=== PATIENT | female | born 1945 | race Caucasian/White ===

== ENCOUNTER 2024-10-17 14:45 | Inpatient (IN) ==
--- NOTE | 2024-10-17 15:01 | Emergency Department Note ---
Impression & Plan Syncope, Hypoxia, Pneumothorax, Acute UTI (urinary tract infection) ED Provider Note ED Provider Note NAME: KENNY VENEGAS AGE:79 SEX: Female : 1945 ARRIVES VIA: EMS INFORMANT: EMS ED PROVIDER(s): Haritha Nam DO CHIEF COMPLAINT: Syncope, hypoxia HPI: This is an 79-year-old female who presents to the emergency department via EMS after she was in the doctor's office for a follow-up appointment from her recent hospitalization and appeared unwell and had a syncopal event lasting 30 to 45 seconds. Staff reported to EMS that during that time they had a difficult time feeling a pulse, and that her oxygen level was 40% on their pulse ox. No CPR performed according to EMS. They did place her on nasal cannula and turned it up to 15 L/min. EMS states on their arrival patient had begun to arouse however appeared to have agonal respirations. They transitioned her to a nonrebreather, and saturations quickly reached 98%. They states she seemed more alert and route. At bedside patient states she remembers arriving at the doctor's office and speaking with the doctor in the next thing she knew there were EMS personnel around her. She states she does not recall feeling weak, dizzy, having headaches, chest pain, abdominal pain, feeling nauseated, or having any difficulty breathing. Patient states she was recently hospitalized for difficulty breathing but does not use any MDI/nebulizers at home, does not wear home oxygen. Patient states no recent change in her urine. She states she does not have a bowel movement very often and does not know why. She states she cannot recall last time she had a bowel movement. Patient reported to EMS she has not had anything to eat or drink in the last 2 days. PAST MEDICAL HISTORY:See Below PAST SURGICAL HISTORY:See Below FAMILY HISTORY:See Below SOCIAL HISTORY:See Below HOME MEDICATIONS:See Below ALLERGIES:See Below VITALS:See Below PHYSICAL EXAMINATION: GENERAL: alert, unwell appearing, well nourished, no distress, non-toxic EYE EXAM: normal conjunctiva, PERRL and EOM's grossly intact OROPHARYNX: no exudate, no erythema, lips, buccal mucosa, and tongue normal and mucous membranes are moist NECK: supple, no nuchal rigidity, no adenopathy, non-tender LUNGS: Clear to auscultation. Normal chest wall mechanics, no w/r/r HEART: no murmurs, S1 normal and S2 normal ABDOMEN: abdomen soft, non-tender, normo-active bowel sounds, no masses, no rebound or guarding. BACK: Back is symmetrical on inspection and there is no deformity, no midline tenderness, no CVA tenderness. SKIN: no rashes, petechiae, orbruising UPPER EXTREMITIES: upper extremities are grossly normal. FROM, nml pulses b/l. LOWER EXTREMITIES: No pitting edema. FROM, nml pulses b/l. NEURO EXAM: Normal sensorium, cranial nerves II-XII grossly intact, normal speech, no facial droop,nogross weakness of arms, no gross weakness of legs. Gross sensation intact. No ataxia. Vital Signs: reviewed and remarkable Differential Diagnosis: vasovagal event, infection, hypoglycemia, electrolyte abnormalities, toxidrome, substance abuse, dysrhythmia, ACS, as well as others were entertained. MEDICAL DECISION MAKING: This is an 79 yo female who presents via EMS from her PCPs office after an unresponsive and hypoxic episode. Upon arrival she was awake and oriented, and had been weaned off oxygen down to room air. She denied any complaints and EMS reports was resistant initially to coming to the ER. She was afebrile and VS stable. Labs drawn and sent, IV established, EKG and CXR performed and interpreted at bedside, and patient placed on telemetry. Recent admission revealed CHF with LVEF 20%. Patient noted to have pneumothorax on cxr. She was sent for CT head and chest. CT head unremarkable and CT chest with left pneumo and tension component. I discussed with patient and family need for chest tube placement and for admission. After significant discussion and family convincing patient to allow treatment, patient consented. She asked for her son to sign the consent for for the procedure. Please see additional procedure note which patient tolerated well and repeat cxr showed improved pneumo. Patient had been started on IVF due to concern for dehydration as she reported she hadn't had anything to eat/drink for 2 days. She was given IV tylenol and IV fentanyl preprocedure to help with pain. I did discuss the pneumo with oncall pulm prior to placing chest tube and then with hospitalist for further inpatient mgmt. UA noted to be suboptimal and suggestive of possible UTI so patient given IV rocephin additionally. She had no resp distress or hypoxic episodes while in the ER. Consultation(s): 1939: Discussed with Dr. Rosas, pulmonology. 2251: Discussed with Dr. Trinh, [place] hospitalist team, for additional evaluation and mgmt. ER Treatment Provided: See below 1520: Discussed with family now at bedside. They state patient was sitting in a chair and and eye glazed over and her head dropped and they couldn't get her to respond for almost 1 minute, no seizure like activity. Daughter in law states she seemed fine prior to that during the appointment. Diagnostics Interpreted By Me: -ECG: Normal sinus at 81, appropriate axis, right bundle branch block, nonspecific ST/T wave changes -Cardiac Monitoring: An order was placed for continuous cardiac monitoring. The monitor shows a rate of 86 with normal sinus rhythm. -Laboratory studies: As stated above and show below. -Imaging studies: X-ray Chest: A single view study of the chest was reviewed and was negative for cardiomegaly, focal infiltrate, effusion, pulmonary edema, or wide mediastinum. left pneumothorax noted. CT head: no ich Triage Nursing Note Reviewed Prior/Outside Records Reviewed - recent echo from last week reviewed, DC summary reviewed also Procedures: Tube Thoracostomy Indication: Pneumothorax Written consent was obtained after the risks and benefits were explained, including but not limited to cardiac/liver/lung injury, bleeding, scarring, infection, pain, and bone/joint/nerve damage. At this time, the risks of the procedure are less than the risks of NOT performing the procedure. A time out was taken and the correct patient and site identified. The patient was prepped and draped in the standard surgical fashion. 1% lidocaine without epinephrine was infused over the left fourth intercostal space into the subcutaneous tissue. A 1 cm incision was made transversely in the anterior axillary line over the fourth intercostal rib. 1% lidocaine again was used for anesthesia in intercostal muscle and subpleural space. Air was noted upon entering the pleural cavity. A 8 Mexican thoracostomy tube was inserted in the superior/posterior portion of the pleural space. 1-0 silk suture was used to secure the thoracostomy tube. An occlusive dressing was then placed and the thoracostomy tube was hooked to the Pleur-evac suction. The patient tolerated the procedure well without complications. A postoperative x-ray was then performed which showed the thoracostomy tube in the correct position. Critical Care: Critical care of 48 min performed to assess and manage high likelihood of life- threatening hypoxia and syncope, involving labs and imaging performed with assessment to evaluate syncope and hypoxia diagnosis with frequent reassessment. This time includes bedside time, treatment discussions with patient/family/consultants, documentation time and excludes procedure time. 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 Acute respiratory failure with hypoxia CHF (congestive heart failure) (Acute) Medical History (Updated 10/18/24 @ 00:42 by Background Day) Stroke Social History (Updated 10/17/24 @ 13:07 by Yajaira Huang) Smoking Status: Former smoker Tobacco Type: Cigarettes Age Started Using Tobacco: 15; Age Quit Using Tobacco: 15; packs per day: 0.01; Hx Alcohol Use: Yes Alcohol type: beer Hx Substance Use: No Preferred Language: Turkish Communication Ability: Effective Health Care Assistant Required: No Beliefs That Will Affect Care: None Current Living Situation: Alone Current Living Situation Comment: home alone; son lives next door Other Information That Helps Us Care for You: No Feels Safe at Home: Yes Safety Concerns: Feels Safe At This Time Dental Care, Regularly: No Physical Activity Frequency: Does not Exercise Seatbelt Use: always Sunscreen Use: No Assistive Devices: Walker Allergies Allergies Allergy/AdvReac Type Severity Reaction Status Date / Time No Known Allergies Allergy Verified 10/17/24 13:03 Home Meds Home Medications Medication Instructions Recorded Confirmed epinephrine 0.125 mg/actuation 1 puff inhalation DIRECTED PRN 10/08/24 10/17/24 aerosol inhaler (Primatene Mist) Shortness Of Breath Or Wheezing naproxen sodium 220 mg tablet 220 mg PO Q8H PRN Pain 10/08/24 10/17/24 (Aleve) Previous Rx's Medication Instructions Recorded aspirin 81 mg tablet,delayed 81 mg PO DAILY #0 tabs 10/11/24 release sacubitril 24 mg-valsartan 26 mg 1 tab PO BID #60 tabs 10/11/24 tablet (Entresto) furosemide 40 mg tablet (Lasix) 40 mg PO DAILY #30 tabs 10/17/24 potassium chloride 10 mEq 20 meq (2 x 10 mEq) PO BID 30 days 10/17/24 capsule,extended release #120 caps Results & Data (ED) Vital Signs Vital Signs - 24 hr 10/17/24 22:24 10/17/24 23:00 Pulse Rate 71 73 Pulse Rate from SpO2 Sensor 71 74 Respiratory Rate 15 16 Blood Pressure 136/78 156/85 H Blood Pressure Mean 97 108 Pulse Oximetry 99 98 Laboratory Data 10/18/24 04:57 10/18/24 04:57 Lab Results 10/17/24 10/17/24 10/17/24 Range/Units 16:28 16:35 17:37 WBC 7.03 (4.8-10.8) K/ul RBC 5.05 (4.20-5.40) M/uL Hgb 14.8 (12.0-16.0) g/dl Hct 43.9 (37.0-47.0) % MCV 86.9 (80.0-100.0) fL MCH 29.3 (25.0-34.0) pg MCHC 33.7 (32.0-36.0) g/dL RDW Std Deviation 42.6 (36.4-46.3) fL RDW Coeff of Ericka 13.4 (11.5-14.5) % Plt Count 132 (130-400) K/uL MPV 13.2 H (9.4-12.4) fL Immature Gran % (Auto) 0.3 % Neut % (Auto) 79.3 % Lymph % (Auto) 11.5 % [place] % (Auto) 6.4 % Eos % (Auto) 1.6 % Baso % (Auto) 0.9 % Neut # (Auto) 5.58 (1.40-6.50) K/uL Lymph # (Auto) 0.81 L (1.20-3.40) K/uL [place] # (Auto) 0.45 (0.11-0.59) K/uL Eos # (Auto) 0.11 (0.00-0.50) K/uL Baso # (Auto) 0.06 (0.00-0.20) K/uL Immature Gran # (Auto) 0.02 (0.01-0.20) K/uL PT 10.8 (9.0-12.0) Seconds INR 1.0 (0.9-1.1) VBG pH 7.30 L (7.36-7.41) VBG pCO2 62 H (38-50) mmHg VBG pO2 20 mmHg VBG HCO3 31 mmol/L VBG O2 Saturation < 60.0 % VBG Base Excess 2.4 mEq/L Sodium 137 (136-145) mmol/L Potassium 4.1 (3.5-5.1) mmol/L Chloride 99 (98-107) mmol/L Carbon Dioxide 28 (21-32) mmol/L Anion Gap 10 (3-11) BUN 23 (6-23) mg/dl Creatinine 1.05 (0.6-1.2) mg/dl Est Cr Clr Drug Dosing 31.0 ml/min eGFR 53.71 BUN/Creatinine Ratio 21.9 H (10-20) Glucose 109 H (70-99(Fasting)) mg/dl Lactate 2.4 H* (0.4-2.0) mmol/L Calcium TNP Magnesium 2.3 (1.7-2.4) mg/dl Total Bilirubin 0.8 (0.2-1.0) mg/dl AST 11 L (13-39) U/L ALT 8 (7-52) U/L Alkaline Phosphatase 74 (34-104) U/L Troponin I High Sens Cancelled Total Protein 7.1 (6.0-8.3) gm/dl Albumin 3.7 (3.4-5.0) gm/dl Globulin 3.4 (2.5-4.0) gm/dl Albumin/Globulin Ratio 1.1 (0.9-2) Lipase 28 (11-82) U/L Procalcitonin 0.04 (0-0.5) ng/ml TSH Cancelled Free T4 1.06 (0.61-1.60) ng/dl Urine Color Yellow Urine Appearance Clear (Clear) Urine pH 6.0 (4.5-7.5) Ur Specific [place] 1.009 (1.000-1.030) Urine Protein Negative (Negative) Urine Glucose (UA) Negative (Negative) Urine Ketones Negative (Negative) Urine Blood Trace H (Negative) Urine Nitrite Negative (Negative) Urine Bilirubin Negative (Negative) Urine Urobilinogen Negative (Negative) Ur Leukocyte Esterase 3+ H (Negative) Urine WBC (Auto) >50 H (0-5) /hpf Urine RBC (Auto) 0-2 (0-2) /hpf U Hyaline Cast (Auto) 6-10 H (0-2) /lpf U Epithel Cells (Auto) 3-5 H (0-2) /hpf Urine Bacteria (Auto) 1+ H (None Seen) Urine Comment 10/17/24 Range/Units 18:29 WBC (4.8-10.8) K/ul RBC (4.20-5.40) M/uL Hgb (12.0-16.0) g/dl Hct (37.0-47.0) % MCV (80.0-100.0) fL MCH (25.0-34.0) pg MCHC (32.0-36.0) g/dL RDW Std Deviation (36.4-46.3) fL RDW Coeff of Ericka (11.5-14.5) % Plt Count (130-400) K/uL MPV (9.4-12.4) fL Immature Gran % (Auto) % Neut % (Auto) % Lymph % (Auto) % [place] % (Auto) % Eos % (Auto) % Baso % (Auto) % Neut # (Auto) (1.40-6.50) K/uL Lymph # (Auto) (1.20-3.40) K/uL [place] # (Auto) (0.11-0.59) K/uL Eos # (Auto) (0.00-0.50) K/uL Baso # (Auto) (0.00-0.20) K/uL Immature Gran # (Auto) (0.01-0.20) K/uL PT (9.0-12.0) Seconds INR (0.9-1.1) VBG pH (7.36-7.41) VBG pCO2 (38-50) mmHg VBG pO2 mmHg VBG HCO3 mmol/L VBG O2 Saturation % VBG Base Excess mEq/L Sodium (136-145) mmol/L Potassium (3.5-5.1) mmol/L Chloride (98-107) mmol/L Carbon Dioxide (21-32) mmol/L Anion Gap (3-11) BUN (6-23) mg/dl Creatinine (0.6-1.2) mg/dl Est Cr Clr Drug Dosing ml/min eGFR BUN/Creatinine Ratio (10-20) Glucose (70-99(Fasting)) mg/dl Lactate 2.6 H* (0.4-2.0) mmol/L Calcium 8.9 Magnesium (1.7-2.4) mg/dl Total Bilirubin (0.2-1.0) mg/dl AST (13-39) U/L ALT (7-52) U/L Alkaline Phosphatase (34-104) U/L Troponin I High Sens 14.2 H Total Protein (6.0-8.3) gm/dl Albumin (3.4-5.0) gm/dl Globulin (2.5-4.0) gm/dl Albumin/Globulin Ratio (0.9-2) Lipase (11-82) U/L Procalcitonin (0-0.5) ng/ml TSH 4.954 H Free T4 Cancelled (0.61-1.60) ng/dl Urine Color Urine Appearance (Clear) Urine pH (4.5-7.5) Ur Specific [place] (1.000-1.030) Urine Protein (Negative) Urine Glucose (UA) (Negative) Urine Ketones (Negative) Urine Blood (Negative) Urine Nitrite (Negative) Urine Bilirubin (Negative) Urine Urobilinogen (Negative) Ur Leukocyte Esterase (Negative) Urine WBC (Auto) (0-5) /hpf Urine RBC (Auto) (0-2) /hpf U Hyaline Cast (Auto) (0-2) /lpf U Epithel Cells (Auto) (0-2) /hpf Urine Bacteria (Auto) (None Seen) Urine Comment Administered Medications Mirtazapine (Mirtazapine Tab 15 Mg Tab) 15 mg PO HS BULMARO Stop: 11/17/24 20:59 Last Admin: 10/18/24 19:29 Dose: 15 mg Documented By: CP Discontinued Medications Fentanyl Citrate (Fentanyl Citrate Pf 100 Mcg/2 Ml Vial) 25 mcg IV Q15M PRN PRN Reason: Pain Stop: 10/31/24 21:11 Last Admin: 10/17/24 21:57 Dose: 25 mcg Documented By: ERM Sodium Chloride (Nss) 1,000 mls @ 200 mls/hr IV .Q5H BULMARO Stop: 10/20/24 14:59 Last Admin: 10/18/24 01:08 Dose: Not Given Documented By: Infusion: 10/17/24 20:40 Dose: Infused Documented By: Admin: 10/17/24 15:33 Dose: 200 mls/hr Documented By: KMF Ceftriaxone Sodium (Rocephin) 2,000 mg in 50 mls @ 100 mls/hr IV NOW STA Stop: 10/17/24 19:53 Last Infusion: 10/17/24 20:18 Dose: Infused Documented By: Admin: 10/17/24 19:45 Dose: 100 mls/hr Documented By: ROYAL Lactated Ringer's (Lr) 1,000 mls @ 80 mls/hr IV .[id number] BULMARO Stop: 10/18/24 20:14 Last Infusion: 10/18/24 19:23 Dose: Infused Documented By: Admin: 10/18/24 07:59 Dose: 80 mls/hr Documented By: GPF Albumin Human (Albumin 25%) 25 gm in 100 mls @ 50 mls/hr IV Q2H BULMARO Stop: 10/18/24 11:44 Last Infusion: 10/18/24 11:43 Dose: Infused Documented By: Admin: 10/18/24 09:45 Dose: 50 mls/hr Documented By: Infusion: 10/18/24 09:45 Dose: Infused Documented By: Admin: 10/18/24 07:59 Dose: 50 mls/hr Documented By: GPF Cefepime HCl (Maxipime 2000mg) 2,000 mg in 20 mls @ 5 mls/min IV Q12H BULMARO; Protocol Stop: 10/23/24 08:59 Last Admin: 10/18/24 11:06 Dose: Not Given Documented By: GPF Ioversol (Optiray 320 100ml) 92 ml IV ONCE ONE Stop: 10/17/24 17:56 Last Admin: 10/17/24 17:56 Dose: 92 ml Documented By: CRISTAL Levalbuterol HCl (Levalbuterol Hcl 0.63 Mg/3 Ml Neb) 0.63 mg NEB Q6R BULMARO; Protocol Stop: 11/17/24 08:59 Last Admin: 10/18/24 19:23 Dose: Not Given Documented By: Admin: 10/18/24 09:25 Dose: Not Given Documented By: EALexx Lidocaine HCl (Lidocaine 1% Local 20 Ml Vial) 20 ml INFIL NOW ONE Stop: 10/17/24 21:13 Last Admin: 10/17/24 23:15 Dose: Not Given Documented By: ERM Morphine Sulfate (Morphine Sulfate 2 Mg/Ml Carp) 1 mg IV NOW STA Stop: 10/18/24 08:49 Last Admin: 10/18/24 09:11 Dose: 1 mg Documented By: GPF Sacubitril/Valsartan (Valsartan/Sacubitril 26/24mg Tab) 1 tab PO BID BULMARO Stop: 11/17/24 00:51 Last Admin: 10/18/24 01:24 Dose: 1 tab Documented By: CLC Imaging Data Radiologist's Impression: Chest X-Ray 10/17/24 14:56 XR chest 1V portable CLINICAL HISTORY: syncope, hypoxia COMPARISON STUDY: 10/10/2024 FINDINGS: There is a small left pneumothorax with 1.5 cm pleural separation at the left apex. No pneumothorax seen on the right. There is stable cardiomegaly without pulmonary vascular congestion. There is a possible trace right pleural effusion. No pulmonary consolidation seen. IMPRESSION: Interval small left pneumothorax. ACT 112: Negative or not required by law. Electronically signed by: Jayson Damon M.D. 10/17/2024 4:[address] 10/17/24 16:07 EXAMINATION: Chest CT with CLINICAL HISTORY: Hypoxia, new left pneumothorax PRIORS: 10/10/2024 chest radiograph TECHNIQUE: Contiguous axial images were obtained through the chest with the use of intravenous contrast. Sagittal and coronal reformations are supplied. FINDINGS: A moderate right pneumothorax is present, appearing since the chest radiograph. Allowing for rotation, the heart and trachea shifted to the right hemithorax. 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 Diffuse aneurysmal dilatation of the aorta is present. Allowing for nongated technique, the ascending aorta measures 3.4 x 3.5 cm at the level of the main pulmonary artery. The descending aorta measures approximately 3.0 x 3.3 cm at this level. The mid descending thoracic aorta measures 3.5 x 3.3 cm. The distal thoracic aorta is tortuous. Mural thrombus present within the aorta wall,. The distal thoracic aorta measures 3.1 x 3.4 cm, also with advanced atherosclerotic disease. Moderate bilateral pleural effusions present, improved in the interval. Heart size is extremely enlarged with dilatation of the left ventricle and left atrium, no further characterized. No large pericardial effusion. Calcified hilar and mediastinal lymph nodes represent prior granulomatous exposure. Trachea patent. No airspace consolidation to suggest pneumonia. Moderate to advanced osseous demineralization noted. Moderate kyphosis and degenerative change of the thoracic spine. No displaced fracture identified IMPRESSION: 1. Known left pneumothorax, moderate in size, with tension on the mediastinum, shifting the heart and trachea to the right. The critical results protocol was activated at 6:56 PM on 10/17/2024. 2. Moderate bilateral pleural effusions. 3. 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 The integrity of the aortic wall is not fully evaluated on the current examination. Vascular surgery consultation could be considered if clinically appropriate. ACT 112: Positive. There are findings on this examination that require communication between the performing entity and the patient following Patient Test Result Information Act ([place] ACT 112) guidelines. Electronically signed by Kendal Freitas 10-17-2024 6:[address] 10/17/24 16:07 Clinical History: Hypoxia Technique: Axial computed tomography images were obtained of the brain without intravenous contrast. Findings: There is diffuse cerebral atrophy, within expected limits for the patient's age. Areas of decreased attenuation are seen within the periventricular white matter, likely representing chronic small vessel ischemic disease. There is no definite sign of acute or old infarction. No intracranial hemorrhage is evident. No definite mass lesion is seen on this noncontrast examination. There is no midline shift or other form of herniation. No hydrocephalus is seen. No fracture is identified. The orbits and the visualized paranasal sinuses appear unremarkable. The mastoid air cells appear clear. Impression: 1. Cerebral atrophy and chronic small vessel ischemic disease 2. Otherwise unremarkable noncontrast CT of the brain Electronically signed by Denny Bianchi 10-17-2024 6:10 PM Chest X-Ray 10/17/24 21:46 Exam(s): XR CXR 1 VIEW EXAM: XR Chest, 1 View CLINICAL HISTORY: Reason for exam: post chest tube. TECHNIQUE: Frontal view of the chest. COMPARISON: Earlier the same date. FINDINGS: Lungs: No consolidation. Pleural space: There is a left chest tube. No pneumothorax. There is blunting of the right costophrenic angle. Heart: Heart is top normal in size.. Mediastinum: There is uncoiling of thoracic aorta.. Bones/joints: There are degenerative changes in the spine.. IMPRESSION: There is a left chest tube. No pneumothorax is seen. There is a possible small right pleural effusion. Electronically signed by: Tamir Cordero MD 10/17/24 22:56 PM Discharge Plan Visit Data Chief Complaint: Syncope Stated Complaint: SYNCOPE ED Provider: Haritha Nam Discharge Problem: Syncope, Hypoxia, Pneumothorax, Acute UTI (urinary tract infection) Patient Disposition: Admitted As Inpatient Condition: Fair Discharge Instructions Interventions: ED Discharge Assessment Last Done: 10/18/24 00:15
[2024-10-17] MEDS: SODIUM CHLORIDE 0.9% 1,000 ML IV SCH (15:33)
--- NOTE | 2024-10-17 16:01 | XRay Report ---
XR chest 1V portable CLINICAL HISTORY: syncope, hypoxia COMPARISON STUDY: 10/10/2024 FINDINGS: There is a small left pneumothorax with 1.5 cm pleural separation at the left apex. No pneu mothorax seen on the right. There is stable cardiomegaly without pulmonary vascular congestion. There is a possible trace right pleural effusion. No pulmonary consolidation seen. IMPRESSION: Interval small left pneumothorax. ACT 112: Negative or not required by law. Electronically signed by: Jayson Damon M.D. 10/17/2024 4:00 PM
[2024-10-17 16:54] LABS: Base Excess VBG 2.4 mEq/L; HCO3 VBG 31 mmol/L; Oxygen Saturation VBG < 60.0 %; PCO2 VBG 62 mmHg (38-50); PO2 VBG 20 mmHg; pH VBG 7.30 (7.36-7.41)
[2024-10-17 17:27] LABS: INR 1.0 (0.9-1.1); Prothrombin Time 10.8 Seconds (9.0-12.0)
[2024-10-17 17:31] LABS: Anion Gap 10 (3-11); Bilirubin,Total 0.8 mg/dl (0.2-1.0); Carbon Dioxide 28 mmol/L (21-32); Chloride 99 mmol/L (98-107); Magnesium 2.3 mg/dl (1.7-2.4); Potassium 4.1 mmol/L (3.5-5.1); Sodium 137 mmol/L (136-145)
[2024-10-17 17:35] LABS: Hematocrit (blood only) 43.9 % (37.0-47.0); Hemoglobin 14.8 g/dl (12.0-16.0); Immature Granulocytes # (auto) 0.02 K/uL (0.01-0.20); Immature Granulocytes % (auto) 0.3 %; Mean Corpuscular Hemoglobin 29.3 pg (25.0-34.0); Mean Corpuscular Volume 86.9 fL (80.0-100.0); Platelet Count 132 K/uL (130-400); RDW Standard Deviation 42.6 fL (36.4-46.3); Red Blood Count 5.05 M/uL (4.20-5.40); White Blood Count 7.03 K/ul (4.8-10.8)
[2024-10-17 17:37] LABS: Alanine Aminotransferase 8 U/L (7-52); Albumin Globulin Ratio 1.1 (0.9-2); Alkaline Phosphatase 74 U/L (34-104); Blood Urea Nitrogen 23 mg/dl (6-23); Creatinine Clr Calc Pharmacy 31.0 ml/min; Globulin 3.4 gm/dl (2.5-4.0); Glucose 109 mg/dl (70-99(Fasting)); Lipase 28 U/L (11-82); Total Protein 7.1 gm/dl (6.0-8.3)
[2024-10-17] MEDS: OPTIRAY 320 100ml IV ONE (17:56)
--- NOTE | 2024-10-17 18:11 | CT Scan Report ---
Clinical History: Hypoxia Technique: Axial computed tomography images were obtained of the brain without intravenous contrast. Findings: There is diffuse cerebral atrophy, within expected limits for the patient's age. Areas of decreased attenuation are seen within the periventricular white matter, likely representing chronic small vessel ischemic disease. There is no definite sign of acute or old infarction. No intracranial hemorrhage is evident. No definite mass lesion is seen on this noncontrast examination. There is no midline shift or other form of herniation. No hydrocephalus is seen. No fracture is identified. The orbits and the visualized paranasal sinuses appear unremarkable. The mastoid air cells appear clear. Impression: 1. Cerebral atrophy and chronic small vessel ischemic disease 2. Otherwise unremarkable noncontrast CT of the brain Electronically signed by Denny Bianchi 10-17-2024 6:10 PM
--- NOTE | 2024-10-17 18:58 | CT Scan Report ---
EXAMINATION: Chest CT with CLINICAL HISTORY: Hypoxia, new left pneumothorax PRIORS: 10/10/2024 chest radiograph TECHNIQUE: Contiguous axial images were obtained through the chest with the use of intravenous contrast. Sagittal and coronal reformations are supplied. FINDINGS: A moderate right pneumothorax is present, appearing since the chest radiograph. Allowing for rotation, the heart and trachea shifted to the right hemithorax. 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 Diffuse aneurysmal dilatation of the aorta is present. Allowing for nongated technique, the ascending aorta measures 3.4 x 3.5 cm at the level of the main pulmonary artery. The descending aorta measures approximately 3.0 x 3.3 cm at this level. The mid descending thoracic aorta measures 3.5 x 3.3 cm. The distal thoracic aorta is tortuous. Mural thrombus present within the aorta wall,. The distal thoracic aorta measures 3.1 x 3.4 cm, also with advanced atherosclerotic disease. Moderate bilateral pleural effusions present, improved in the interval. Heart size is extremely enlarged with dilatation of the left ventricle and left atrium, no further characterized. No large pericardial effusion. Calcified hilar and mediastinal lymph nodes represent prior granulomatous exposure. Trachea patent. No airspace consolidation to suggest pneumonia. Moderate to advanced osseous demineralization noted. Moderate kyphosis and degenerative change of the thoracic spine. No displaced fracture identified IMPRESSION: 1. Known left pneumothorax, moderate in size, with tension on the mediastinum, shifting the heart and trachea to the right. The critical results protocol was activated at 6:56 PM on 10/17/2024. 2. Moderate bilateral pleural effusions. 3. 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 The integrity of the aortic wall is not fully evaluated on the current examination. Vascular surgery consultation could be considered if clinically appropriate. ACT 112: Positive. There are findings on this examination that require communication between the performing entity and the patient following Patient Test Result Information Act ([place] ACT 112) guidelines. Electronically signed by Kendal Freitas 10-17-2024 6:57 PM
[2024-10-17 19:22] LABS: Appearance Urine Clear (Clear); Bacteria Urine Automated 1+ (None Seen); Glucose Urine UA Negative (Negative); RBC Urine Automated 0-2 /hpf (0-2); WBC Urine Automated >50 /hpf (0-5)
[2024-10-17 19:23] LABS: Calcium 8.9 mg/dl (8.6-10.3)
[2024-10-17 19:44] LABS: Thyroid Stimulating Hormone 4.954 uIu/ml (0.300-4.500)
[2024-10-17] MEDS: cefTRIAXone SODIUM 2,000 MG/50 ML BAG IV STA (19:45)
--- NOTE | 2024-10-17 22:56 | XRay Report ---
Exam(s): XR CXR 1 VIEW EXAM: XR Chest, 1 View CLINICAL HISTORY: Reason for exam: post chest tube. TECHNIQUE: Frontal view of the chest. COMPARISON: Earlier the same date. FINDINGS: Lungs: No consolidation. Pleural space: There is a left chest tube. No pneumothorax. There is blunting of the right costophrenic angle. Heart: Heart is top normal in size.. Mediastinum: There is uncoiling of thoracic aorta.. Bones/joints: There are degenerative changes in the spine.. IMPRESSION: There is a left chest tube. No pneumothorax is seen. There is a possible small right pleural effusion. Electronically signed by: Tamir Cordero MD 10/17/24 22:56 PM
[2024-10-17] MEDS: LIDOCAINE 1% LOCAL 20 ML VIAL INFIL ONE (23:15)
--- NOTE | 2024-10-17 23:54 | History & Physical Report ---
Date of Service October 17, 2024 Assessment & Plan (1) Syncope: (2) Pneumothorax: (3) Acute respiratory failure with hypoxia: (4) Acute UTI (urinary tract infection): Plan the patient is an 79-year-old female with a past medical history including left anterior hemiblock, CHF, acute on chronic respiratory failure, and hypertension. The patient was taken to the emergency department via EMS after she was in her PCPs office today, and began to feel unwell, and her PCP thought that she was having an acute respiratory failure event lasting about 30 to 45 seconds. Her oxygen level was reportedly 40% on EMS pulse ox machine. No CPR was performed. She did get placed on nasal cannula and was turned up to 15 L/min. EMS reports that the patient initially had agonal respirations. They changed her from 15 L nasal cannula to nonrebreather mask, and saturations went to 98%. Patient improved alertness as she was transported to the ED. At the time of my assessment, patient was on nasal cannula, and able to converse clearly and efficiently. Syncope- Patient was at her doctor's office earlier in the day, when he noted her developing decreasing responsiveness, noted to be acute respiratory failure with hypoxia, and she then had an unresponsive episode lasted 30 to 45 seconds. The patient will be admitted to telemetry for serial cardiac enzymes, serial EKG's, cardiac rhythm monitoring and a 2-D echocardiogram with Dopplers. Differential including not limited to, vasovagal, complication of left pneumothorax and displacement urgent treatment with right, urinary tract infection here sort soreness Left tension pneumothorax/displaced heart and trachea to the right- ED discussed with pulmonology Dr. Rosas. Chest tube placed left chest, with improved patient's symptomatology. Patient will be admitted to PCU overflow in the ICU, with consult to pulmonology. Initial troponin 14.2, follow-up pending Acetaminophen 650 mg by mouth every 6 hours as needed for mild pain or fever Morphine sulfate 2 mg IV every 3 hours as needed for moderate pain Morphine sulfate 4 mg IV every 3 hours as needed for severe pain Acute urinary tract infection- Follow urine culture and sensitivity Continue ceftriaxone 2 g IV every 24 hours begun in the ED Complete IV fluids normal saline at 200 mL/h in the ED, then lactated Ringer's at 80 mL/h times 1 L Hypertension- Continue aspirin, Hold furosemide and Entresto due to low blood pressure Give albumin 50 g IV x 1 for albumin 3.1. History of Present Illness Chief Complaint: The patient was taken to the emergency department via EMS after she was in her PCPs office today, and began to feel unwell, and her PCP thought that she was having an acute respiratory failure event lasting about 30 to 45 seconds. Her oxygen level was reportedly 40% on EMS pulse ox machine. No CPR was performed. She did get placed on nasal cannula and was turned up to 15 L/min. EMS reports that the patient initially had agonal respirations. They changed her from 15 L nasal cannula to nonrebreather mask, and saturations went to 98%. Patient improved alertness as she was transported to the ED. At the time of my assessment, patient was on nasal cannula, and able to converse clearly and efficiently. Primary Care Provider: Prasad Estevez DO the patient is an 79-year-old female with a past medical history including left anterior hemiblock, CHF, acute on chronic respiratory failure, and hypertension. The patient was taken to the emergency department via EMS after she was in her PCPs office today, and began to feel unwell, and her PCP thought that she was having an acute respiratory failure event lasting about 30 to 45 seconds. Her oxygen level was reportedly 40% on EMS pulse ox machine. No CPR was performed. She did get placed on nasal cannula and was turned up to 15 L/min. EMS reports that the patient initially had agonal respirations. They changed her from 15 L nasal cannula to nonrebreather mask, and saturations went to 98%. Patient improved alertness as she was transported to the ED. At the time of my assessment, patient was on nasal cannula, and able to converse clearly and efficiently. Allergies Allergy/AdvReac Type Severity Reaction Status Date / Time No Known Allergies Allergy Verified 10/17/24 13:03 Home Medications Medication Instructions Recorded Confirmed Type epinephrine 0.125 mg/actuation 1 puff inhalation DIRECTED PRN 10/08/24 10/17/24 History aerosol inhaler (Primatene Mist) Shortness Of Breath Or Wheezing naproxen sodium 220 mg tablet 220 mg PO Q8H PRN Pain 10/08/24 10/17/24 History (Aleve) aspirin 81 mg tablet,delayed 81 mg PO DAILY #0 tabs 10/11/24 10/17/24 Rx release sacubitril 24 mg-valsartan 26 mg 1 tab PO BID #60 tabs 10/11/24 10/17/24 Rx tablet (Entresto) furosemide 40 mg tablet (Lasix) 40 mg PO DAILY #30 tabs 10/17/24 10/17/24 Rx potassium chloride 10 mEq 20 meq (2 x 10 mEq) PO BID 30 days 10/17/24 10/17/24 Rx capsule,extended release #120 caps Past Med/Surg History Problem List (Updated 10/18/24 @ 00:42 by Background Dajanae) Acute UTI (urinary tract infection) (Acute) Pneumothorax (Acute) Hypoxia (Acute) Syncope (Acute) Pressure ulcer, buttock Pressure ulcer of right ankle Acute respiratory failure Hypoxia Encounter for hospice care discussion Patient cannot afford medications Does not have health insurance Hypokalemia 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 Acute respiratory failure with hypoxia CHF (congestive heart failure) (Acute) Medical History (Updated 10/18/24 @ 00:42 by Background Dajanae) Stroke Social History (Updated 10/17/24 @ 13:07 by Yajaira Huang) Smoking Status: Former smoker Tobacco Type: Cigarettes Age Started Using Tobacco: 15; Age Quit Using Tobacco: 15; packs per day: 0.01; Hx Alcohol Use: Yes Alcohol type: beer Hx Substance Use: No Preferred Language: Indonesian Communication Ability: Effective Title Supervisor Required: No Beliefs That Will Affect Care: None Current Living Situation: Alone Current Living Situation Comment: home alone; son lives next door Other Information That Helps Us Care for You: No Feels Safe at Home: Yes Safety Concerns: Feels Safe At This Time Dental Care, Regularly: No Physical Activity Frequency: Does not Exercise Seatbelt Use: always Sunscreen Use: No Assistive Devices: Walker Review of Systems Review of Systems: The patient denies chest pain, palpitations, cough, lower extremity swelling, sore throat, fevers, chills, sweats, nausea, vomiting, diarrhea , constipation, abdominal pain, pelvic pain, blood in urine or stool, dysuria, urinary frequency or urgency, lightheadedness, dizziness, headache, rash, abnormal bruising or bleeding, imbalance, focal or generalized weakness, numbness or tingling in arms or legs, generalized arthralgias or myalgias, back or neck pain, or night sweats. The review of systems is otherwise negative other than for that already noted above, and at least 10 systems have been reviewed. Physical Exam Physical Exam: The patient is awake, alert and oriented 3, well developed and well nourished, normocephalic and atraumatic, lying in bed and in no acute distress. HEENT--PERRL, EOMI, mucous membranes and oropharynx dry. Neck--supple. No JVD. No bruits. Thyroid normal, trachea midline, no adenopathy. Heart--normal S1 and S2. No murmurs, rubs or gallops. Lungs--clear bilaterally, no respiratory distress, no accessory muscle use. Abdomen--normal bowel sounds and soft. Nontender. Nondistended, no hernias or ma sses, no organomegaly. Extremities--no cyanosis or clubbing. No edema. . Dermatologic--normal skin turgor, normal color, no abnormal lymph nodes, no rash. Neurologic--cranial nerves II through XII grossly intact. Rheumatologic--normal range of motion. Psychiatric--normal affect. Results & Data Results & Data Vital Signs (Past 12 Hours) Vital Signs Temp Pulse Resp BP Pulse Ox O2 Del Method 10/17/24 23:00 73 16 156/85 H 98 10/17/24 22:24 71 15 136/78 99 10/17/24 20:21 85 17 140/66 100 10/17/24 18:57 86 18 120/65 95 10/17/24 17:03 73 18 134/83 98 Room Air 10/17/24 16:27 68 17 98 10/17/24 16:03 72 18 137/78 98 Room Air 10/17/24 15:48 71 13 137/72 97 Room Air 10/17/24 15:29 72 10/17/24 15:03 96 Room Air 10/17/24 15:03 36.8 C 75 20 156/81 H 96 Room Air Laboratory Results Laboratory Results WBC 5.72 K/ul (4.8-10.8) 10/18/24 04:57 RBC 4.57 M/uL (4.20-5.40) 10/18/24 04:57 Hgb 12.7 g/dl (12.0-16.0) 10/18/24 04:57 Hct 39.1 % (37.0-47.0) 10/18/24 04:57 MCV 85.6 fL (80.0-100.0) 10/18/24 04:57 MCH 27.8 pg (25.0-34.0) 10/18/24 04:57 MCHC 32.5 g/dL (32.0-36.0) 10/18/24 04:57 RDW Std Deviation 42.8 fL (36.4-46.3) 10/18/24 04:57 RDW Coeff of Ericka 13.6 % (11.5-14.5) 10/18/24 04:57 Plt Count 156 K/uL (130-400) 10/18/24 04:57 MPV 12.4 fL (9.4-12.4) 10/18/24 04:57 Immature Gran % (Auto) 0.3 % 10/18/24 04:57 Neut % (Auto) 71.1 % 10/18/24 04:57 Lymph % (Auto) 15.7 % 10/18/24 04:57 [place] % (Auto) 9.3 % 10/18/24 04:57 Eos % (Auto) 2.6 % 10/18/24 04:57 Baso % (Auto) 1.0 % 10/18/24 04:57 Neut # (Auto) 4.06 K/uL (1.40-6.50) 10/18/24 04:57 Lymph # (Auto) 0.90 K/uL (1.20-3.40) L 10/18/24 04:57 [place] # (Auto) 0.53 K/uL (0.11-0.59) 10/18/24 04:57 Eos # (Auto) 0.15 K/uL (0.00-0.50) 10/18/24 04:57 Baso # (Auto) 0.06 K/uL (0.00-0.20) 10/18/24 04:57 Immature Gran # (Auto) 0.02 K/uL (0.01-0.20) 10/18/24 04:57 PT 10.8 Seconds (9.0-12.0) 10/17/24 16:28 INR 1.0 (0.9-1.1) 10/17/24 16:28 VBG pH 7.30 (7.36-7.41) L 10/17/24 16:28 VBG pCO2 62 mmHg (38-50) H 10/17/24 16:28 VBG pO2 20 mmHg 10/17/24 16:28 VBG HCO3 31 mmol/L 10/17/24 16:28 VBG O2 Saturation < 60.0 % 10/17/24 16:28 VBG Base Excess 2.4 mEq/L 10/17/24 16:28 Sodium 138 mmol/L (136-145) 10/18/24 04:57 Potassium 3.9 mmol/L (3.5-5.1) 10/18/24 04:57 Chloride 102 mmol/L (98-107) 10/18/24 04:57 Carbon Dioxide 26 mmol/L (21-32) 10/18/24 04:57 Anion Gap 10 (3-11) 10/18/24 04:57 BUN 22 mg/dl (6-23) 10/18/24 04:57 Creatinine 1.00 mg/dl (0.6-1.2) 10/18/24 04:57 Est Cr Clr Drug Dosing 32.4 ml/min 10/18/24 04:57 eGFR 56.95 10/18/24 04:57 BUN/Creatinine Ratio 22.0 (10-20) H 10/18/24 04:57 Glucose 101 mg/dl (70-99(Fasting)) H 10/18/24 04:57 Lactate 2.6 mmol/L (0.4-2.0) H* 10/17/24 18:29 Calcium 8.7 mg/dl (8.6-10.3) 10/18/24 04:57 Phosphorus 3.9 mg/dl (2.5-4.9) 10/18/24 04:57 Magnesium 2.2 mg/dl (1.7-2.4) 10/18/24 04:57 Total Bilirubin 0.8 mg/dl (0.2-1.0) 10/17/24 16:28 AST 11 U/L (13-39) L 10/17/24 16:28 ALT 8 U/L (7-52) 10/17/24 16:28 Alkaline Phosphatase 74 U/L (34-104) 10/17/24 16:28 Troponin I High Sens 14.2 pg/ml (0-14) H 10/17/24 18:29 Total Protein 7.1 gm/dl (6.0-8.3) 10/17/24 16:28 Albumin 3.1 gm/dl (3.4-5.0) L 10/18/24 04:57 Globulin 3.4 gm/dl (2.5-4.0) 10/17/24 16:28 Albumin/Globulin Ratio 1.1 (0.9-2) 10/17/24 16:28 Lipase 28 U/L (11-82) 10/17/24 16:28 Procalcitonin 0.04 ng/ml (0-0.5) 10/17/24 16:28 TSH 4.954 uIu/ml (0.300-4.500) H 10/17/24 18:29 Free T4 TNP 10/17/24 18:29 Urine Color Yellow 10/17/24 17:37 Urine Appearance Clear (Clear) 10/17/24 17:37 Urine pH 6.0 (4.5-7.5) 10/17/24 17:37 Ur Specific [place] 1.009 (1.000-1.030) 10/17/24 17:37 Urine Protein Negative (Negative) 10/17/24 17:37 Urine Glucose (UA) Negative (Negative) 10/17/24 17:37 Urine Ketones Negative (Negative) 10/17/24 17:37 Urine Blood Trace (Negative) H 10/17/24 17:37 Urine Nitrite Negative (Negative) 10/17/24 17:37 Urine Bilirubin Negative (Negative) 10/17/24 17:37 Urine Urobilinogen Negative (Negative) 10/17/24 17:37 Ur Leukocyte Esterase 3+ (Negative) H 10/17/24 17:37 Urine WBC (Auto) >50 /hpf (0-5) H 10/17/24 17:37 Urine RBC (Auto) 0-2 /hpf (0-2) 10/17/24 17:37 U Hyaline Cast (Auto) 6-10 /lpf (0-2) H 10/17/24 17:37 U Epithel Cells (Auto) 3-5 /hpf (0-2) H 10/17/24 17:37 Urine Bacteria (Auto) 1+ (None Seen) H 10/17/24 17:37 Urine Comment 10/17/24 17:37 Nasal Screen MRSA (PCR) Negative (Negative) 10/18/24 01:[address] 10/17/24 16:07 EXAMINATION: Chest CT with CLINICAL HISTORY: Hypoxia, new left pneumothorax PRIORS: 10/10/2024 chest radiograph TECHNIQUE: Contiguous axial images were obtained through the chest with the use of intravenous contrast. Sagittal and coronal reformations are supplied. FINDINGS: A moderate right pneumothorax is present, appearing since the chest radiograph. Allowing for rotation, the heart and trachea shifted to the right hemithorax. 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 Diffuse aneurysmal dilatation of the aorta is present. Allowing for nongated technique, the ascending aorta measures 3.4 x 3.5 cm at the level of the main pulmonary artery. The descending aorta measures approximately 3.0 x 3.3 cm at this level. The mid descending thoracic aorta measures 3.5 x 3.3 cm. The distal thoracic aorta is tortuous. Mural thrombus present within the aorta wall,. The distal thoracic aorta measures 3.1 x 3.4 cm, also with advanced atherosclerotic disease. Moderate bilateral pleural effusions present, improved in the interval. Heart size is extremely enlarged with dilatation of the left ventricle and left atrium, no further characterized. No large pericardial effusion. Calcified hilar and mediastinal lymph nodes represent prior granulomatous exposure. Trachea patent. No airspace consolidation to suggest pneumonia. Moderate to advanced osseous demineralization noted. Moderate kyphosis and degenerative change of the thoracic spine. No displaced fracture identified IMPRESSION: 1. Known left pneumothorax, moderate in size, with tension on the mediastinum, shifting the heart and trachea to the right. The critical results protocol was activated at 6:56 PM on 10/17/2024. 2. Moderate bilateral pleural effusions. 3. 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 The integrity of the aortic wall is not fully evaluated on the current examination. Vascular surgery consultation could be considered if clinically appropriate. ACT 112: Positive. There are findings on this examination that require communication between the performing entity and the patient following Patient Test Result Information Act ([place] ACT 112) guidelines. Electronically signed by Kendal Freitas 10-17-2024 6:[address] 10/17/24 16:07 Clinical History: Hypoxia Technique: Axial computed tomography images were obtained of the brain without intravenous contrast. Findings: There is diffuse cerebral atrophy, within expected limits for the patient's age. Areas of decreased attenuation are seen within the periventricular white matter, likely representing chronic small vessel ischemic disease. There is no definite sign of acute or old infarction. No intracranial hemorrhage is evident. No definite mass lesion is seen on this noncontrast examination. There is no midline shift or other form of herniation. No hydrocephalus is seen. No fracture is identified. The orbits and the visualized paranasal sinuses appear unremarkable. The mastoid air cells appear clear. Impression: 1. Cerebral atrophy and chronic small vessel ischemic disease 2. Otherwise unremarkable noncontrast CT of the brain Electronically signed by Denny Bianchi 10-17-2024 6:10 PM Code Status & VTE Plan Code Status Full code VTE Prophylaxis Plan VTE Prophylaxis will be ordered: Yes PG Care Time/CCT Total # of Minutes Spent Total Time Spent with Patient: Total time spent is greater than 50% in coordination of care (as documented) at patient's floor/unit and/or counseling patient: Coding Level of Care Code 56606 INT INP/OBS CARE 3/75MIN Diagnoses Syncope R55 Pneumothorax J93.9 Acute respiratory failure with hypoxia J96.01 Acute UTI (urinary tract infection) N39.0
[2024-10-18] MEDS ORDERED: ACETAMINOPHEN 1000 MG/100 ML IV IV PRN (00:52)
[2024-10-18] MEDS ORDERED: ONDANSETRON INJ 2 MG/ML 2 ML VIAL IV PRN (00:52)
[2024-10-18] MEDS ORDERED: MoRPHine SULFATE 2 MG/ML CARP IV PRN (00:52)
[2024-10-18] MEDS ORDERED: MoRPHine SULFATE 4 MG/ML 1 ML CARP\\VIAL IV PRN (00:52)
[2024-10-18] MEDS: VALSARTAN/SACUBITRIL 26/24MG TAB PO SCH (01:24)
[2024-10-18 05:17] LABS: Hematocrit (blood only) 39.1 % (37.0-47.0); Hemoglobin 12.7 g/dl (12.0-16.0); Immature Granulocytes # (auto) 0.02 K/uL (0.01-0.20); Immature Granulocytes % (auto) 0.3 %; Mean Corpuscular Hemoglobin 27.8 pg (25.0-34.0); Mean Corpuscular Volume 85.6 fL (80.0-100.0); Platelet Count 156 K/uL (130-400); RDW Standard Deviation 42.8 fL (36.4-46.3); Red Blood Count 4.57 M/uL (4.20-5.40); White Blood Count 5.72 K/ul (4.8-10.8)
[2024-10-18 05:32] LABS: Anion Gap 10.0 (3-11); Blood Urea Nitrogen 22.0 mg/dl (6-23); Calcium 8.7 mg/dl (8.6-10.3); Carbon Dioxide 26.0 mmol/L (21-32); Chloride 102.0 mmol/L (98-107); Creatinine Clr Calc Pharmacy 32.4 ml/min; Glucose 101.0 mg/dl (70-99(Fasting)); Magnesium 2.2 mg/dl (1.7-2.4); Potassium 3.9 mmol/L (3.5-5.1); Sodium 138.0 mmol/L (136-145)
[2024-10-18] MEDS: ALBUMIN 25% 25 GM/100 ML VIAL IV SCH (07:59)
[2024-10-18] MEDS: LACTATED RINGER'S 1,000 ML IV SCH (07:59)
--- NOTE | 2024-10-18 08:10 | XRay Report ---
EXAM: XR chest 1V portable CLINICAL HISTORY: evaluate for pneumothorax TECHNIQUE: An X-ray image of the chest was obtained in the AP projection. COMPARISON: CT study dated 10/17/2024. FINDINGS: There is a left-sided chest tube with the tip projecting over the mid lung zone. Pulmonary Parenchyma: There is significant interval resolution of the left pneumothorax, and a minimal pneumothorax is still present. There is no evidence of consolidation, collapse, or focal opacities. No pulmonary nodules are identified. There is blunting of the right costophrenic angle, likely due to mild pleural effusion. Heart and Mediastinum: Cardiomegaly is present, with a prominent tortuous aorta. There are small calcified lymph nodes in the mediastinum. Bony Thorax: The bony thorax appears intact without fractures or deformities. There are degenerative changes in the bilateral glenohumeral and acromioclavicular joints. Spondylotic changes are noted in the thoracic spine. Soft Tissues: The soft tissues overlying the chest wall are unremarkable. IMPRESSION: 1. Left-sided chest tube with the tip projecting over the mid lung zone, which is a new finding. 2. Marked improvement in the left pneumothorax, with apical minimal pneumothorax still seen. 3. Blunting of the right costophrenic angle, likely due to mild pleural effusion, unchanged. Electronically signed by Morgan Estevez 10-18-2024 08:10 AM
[2024-10-18] MEDS: MoRPHine SULFATE 2 MG/ML CARP IV STA (09:11)
[2024-10-18] MEDS: LEVALBUTEROL HCL 0.63 MG/3 ML NEB NEB SCH (09:25)
--- NOTE | 2024-10-18 09:37 | Hospitalist Progress Note ---
Date of Service October 18, 2024 Assessment & Plan (1) Syncope: (2) Pneumothorax: (3) Acute respiratory failure with hypoxia: (4) Acute UTI (urinary tract infection): Plan Sangeeta Islas is an 79-year-old female with a PMH including left anterior hemiblock, CHF, acute on chronic respiratory failure, and hypertension. she was recently in the hospital for CHF exacerbation, pulmonary edema, hypoxic, hypokalemia her EF was found to be 20% on echo on 10/17/2024, shes was at PCP office and has hypoxia, desatuarate to 40%. The patient brought to our ED via EMS from PCP office. , and began to feel unwell, and her PCP thought that she was having an acute respiratory failure event lasting about 30 to 45 seconds. oxygen level was reportedly 40% on EMS pulse ox machine. No CPR was performed. placed on 15 liter oxygen but EMS reports that the patient initially had agonal respirations. They changed her from 15 L nasal cannula to nonrebreather mask, and saturations went to 98%. Patient improved alertness as she was transported here. found to has tension pneumothorax and displaced heart and trachea to the right, s/p chest tube to the left heart no bed in PCU and overflow to ICU. Syncope- Patient was at her doctor's office on 10/17, when he noted her developing decreasing responsiveness, noted to be acute respiratory failure with hypoxia, and she then had an unresponsive episode lasted 30 to 45 seconds. telemetry, serial cardiac enzymes, serial EKG's, cardiac rhythm monitoring and a 2-D echocardiogram with Dopplers. duplex US to r/o DVT Differential including not limited to, vasovagal, complication of left p neumothorax and displacement urgent treatment with right, urinary tract infection here sort soreness Left tension pneumothorax/displaced heart and trachea to the right- ED discussed with pulmonology Dr. Rosas. Chest tube placed left chest, with improved patient's symptomatology. Initial troponin 14.2, follow-up pending no chest pain Acetaminophen 650 mg by mouth every 6 hours as needed for mild pain or fever Morphine sulfate 2 mg IV every 3 hours as needed for moderate pain Morphine sulfate 4 mg IV every 3 hours as needed for severe pain Acute urinary tract infection- Follow urine culture and sensitivity Continue ceftriaxone 2 g IV every 24 hours begun in the ED Complete IV fluids normal saline at 200 mL/h in the ED, then lactated Ringer's at 80 mL/h times 1 L Hypertension- Continue aspirin, Hold furosemide and Entresto due to low blood pressure Give albumin 50 g IV x 1 for albumin 3.1. Admission and Anticipated Discharge Date Admission Date: October 17, 2024 Subjective she was here for syncope episode, was recently in the hospital she's has chest tube for pneumothorax I will coverage her with IV cefepime until Physical Exam Physical Exam: VITALS: Reviewed. WEIGHT/BMI reviewed. GEN: Healthy appearing, well-developed, NAD. PSYCH: Good Judgment. AOx3. Normal memory, mood, and affect. HEENT -Head: NC/AT; -Mouth and throat: MMM. Normal gums, muc rasahd, palate,. Good dentition. NECK: Supple, with no masses. CV: RRR, no m/r/g. LUNGS: CTAB, no w/r/c; + for left side chest tube . ABD: Soft, NT/ND, NBS, no masses or organomegaly. MSK: No deformities, Normal gait. EXT: No clubbing, cyanosis, or edema. NEURO: AAox3 Results & Data Results & Data Vital Signs (Past 12 Hours) Vital Signs Temp Pulse Pulse Resp BP BP Pulse Ox 10/18/24 03:57 36.7 C 67 18 108/57 L 97 10/18/24 02:00 36.7 C 67 16 121/66 96 10/18/24 00:45 64 10/18/24 00:45 36.7 C 72 16 97 10/18/24 00:15 69 19 123/73 99 10/17/24 23:00 73 16 156/85 H 98 10/17/24 22:24 71 15 136/78 99 O2 Del Method 10/18/24 03:57 Room Air 10/18/24 02:00 Room Air 10/18/24 00:45 10/18/24 00:45 Room Air 10/18/24 00:15 Room Air 10/17/24 23:00 10/17/24 22:24 Laboratory Results Laboratory Results - last 72 hr 10/17/24 10/17/24 10/17/24 16:28 16:35 17:37 WBC 7.03 RBC 5.05 Hgb 14.8 Hct 43.9 MCV 86.9 MCH 29.3 MCHC 33.7 RDW Std Deviation 42.6 RDW Coeff of Ericka 13.4 Plt Count 132 MPV 13.2 H Immature Gran % (Auto) 0.3 Neut % (Auto) 79.3 Lymph % (Auto) 11.5 [place] % (Auto) 6.4 Eos % (Auto) 1.6 Baso % (Auto) 0.9 Neut # (Auto) 5.58 Lymph # (Auto) 0.81 L [place] # (Auto) 0.45 Eos # (Auto) 0.11 Baso # (Auto) 0.06 Immature Gran # (Auto) 0.02 PT 10.8 INR 1.0 VBG pH 7.30 L VBG pCO2 62 H VBG pO2 20 VBG HCO3 31 VBG O2 Saturation < 60.0 VBG Base Excess 2.4 Sodium 137 Potassium 4.1 Chloride 99 Carbon Dioxide 28 Anion Gap 10 BUN 23 Creatinine 1.05 Est Cr Clr Drug Dosing 31.0 eGFR 53.71 BUN/Creatinine Ratio 21.9 H Glucose 109 H Lactate 2.4 H* Calcium TNP Phosphorus Magnesium 2.3 Total Bilirubin 0.8 AST 11 L ALT 8 Alkaline Phosphatase 74 Troponin I High Sens Cancelled Total Protein 7.1 Albumin 3.7 Globulin 3.4 Albumin/Globulin Ratio 1.1 Lipase 28 Procalcitonin 0.04 TSH Cancelled Free T4 1.06 Urine Color Yellow Urine Appearance Clear Urine pH 6.0 Ur Specific [place] 1.009 Urine Protein Negative Urine Glucose (UA) Negative Urine Ketones Negative Urine Blood Trace H Urine Nitrite Negative Urine Bilirubin Negative Urine Urobilinogen Negative Ur Leukocyte Esterase 3+ H Urine WBC (Auto) >50 H Urine RBC (Auto) 0-2 U Hyaline Cast (Auto) 6-10 H U Epithel Cells (Auto) 3-5 H Urine Bacteria (Auto) 1+ H Urine Comment Nasal Screen MRSA (PCR) 10/17/24 10/18/24 10/18/24 18:29 01:00 04:57 WBC 5.72 RBC 4.57 Hgb 12.7 Hct 39.1 MCV 85.6 MCH 27.8 MCHC 32.5 RDW Std Deviation 42.8 RDW Coeff of Ericka 13.6 Plt Count 156 MPV 12.4 Immature Gran % (Auto) 0.3 Neut % (Auto) 71.1 Lymph % (Auto) 15.7 [place] % (Auto) 9.3 Eos % (Auto) 2.6 Baso % (Auto) 1.0 Neut # (Auto) 4.06 Lymph # (Auto) 0.90 L [place] # (Auto) 0.53 Eos # (Auto) 0.15 Baso # (Auto) 0.06 Immature Gran # (Auto) 0.02 PT INR VBG pH VBG pCO2 VBG pO2 VBG HCO3 VBG O2 Saturation VBG Base Excess Sodium 138 Potassium 3.9 Chloride 102 Carbon Dioxide 26 Anion Gap 10 BUN 22 Creatinine 1.00 Est Cr Clr Drug Dosing 32.4 eGFR 56.95 BUN/Creatinine Ratio 22.0 H Glucose 101 H Lactate 2.6 H* Calcium 8.9 8.7 Phosphorus 3.9 Magnesium 2.2 Total Bilirubin AST ALT Alkaline Phosphatase Troponin I High Sens 14.2 H Total Protein Albumin 3.1 L Globulin Albumin/Globulin Ratio Lipase Procalcitonin TSH 4.954 H Free T4 Cancelled Urine Color Urine Appearance Urine pH Ur Specific [place] Urine Protein Urine Glucose (UA) Urine Ketones Urine Blood Urine Nitrite Urine Bilirubin Urine Urobilinogen Ur Leukocyte Esterase Urine WBC (Auto) Urine RBC (Auto) U Hyaline Cast (Auto) U Epithel Cells (Auto) Urine Bacteria (Auto) Urine Comment Nasal Screen MRSA (PCR) Negative 10/18/24 07:52 WBC RBC Hgb Hct MCV MCH MCHC RDW Std Deviation RDW Coeff of Ericka Plt Count MPV Immature Gran % (Auto) Neut % (Auto) Lymph % (Auto) [place] % (Auto) Eos % (Auto) Baso % (Auto) Neut # (Auto) Lymph # (Auto) [place] # (Auto) Eos # (Auto) Baso # (Auto) Immature Gran # (Auto) PT INR VBG pH VBG pCO2 VBG pO2 VBG HCO3 VBG O2 Saturation VBG Base Excess Sodium Potassium Chloride Carbon Dioxide Anion Gap BUN Creatinine Est Cr Clr Drug Dosing eGFR BUN/Creatinine Ratio Glucose Lactate Calcium Phosphorus Magnesium Total Bilirubin AST ALT Alkaline Phosphatase Troponin I High Sens 14.8 H Total Protein Albumin Globulin Albumin/Globulin Ratio Lipase Procalcitonin TSH Free T4 Urine Color Urine Appearance Urine pH Ur Specific [place] Urine Protein Urine Glucose (UA) Urine Ketones Urine Blood Urine Nitrite Urine Bilirubin Urine Urobilinogen Ur Leukocyte Esterase Urine WBC (Auto) Urine RBC (Auto) U Hyaline Cast (Auto) U Epithel Cells (Auto) Urine Bacteria (Auto) Urine Comment Nasal Screen MRSA (PCR) PG Care Time/CCT Total # of Minutes Spent Total Time Spent with Patient: Total time spent is greater than 50% in coordination of care (as documented) at patient's floor/unit and/or counseling patient: Coding Level of Care Code 28440 SUB INP/OBS CARE 25MIN Diagnoses Syncope R55 Pneumothorax J93.9 Acute respiratory failure with hypoxia J96.01 Acute UTI (urinary tract infection) N39.0 Time Spent (min) 25
--- NOTE | 2024-10-18 09:52 | Pulmonary Consultation ---
Date of Consultation October 18, 2024 Assessment & Plan (1) Pneumothorax: Patient with spontaneous left-sided pneumothorax. CT chest without clear evidence of blebs or emphysema. I reviewed the chest x-rays today which shows a trace apical pneumothorax. Chest tube was clamped. Will repeat a chest x-ray a t 11 AM and if no evidence of pneumothorax, we will DC the catheter. She will benefit from an additional chest x-ray if she develops other symptoms. (2) Syncope: Probably multifactorial related to pneumothorax and underlying cardiac disease. 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 Plan Pulmonary will continue to follow along with you. Thank you for the consult. I personally spent 60 minutes on the date of service in activities related to this patient's encounter, including 40 minutes of counseling with patient regarding treatment plan and 20 minutes of clinical review of lab results and documentation. I did assistant corporation counsel the patient regarding their diagnosis and treatment plan and they expressed understanding. This note was dictated using voice recognition software and may include grammatical errors, extra words, word substitutions and other inaccuracies due to errors in the voice recognition software and differences in speech patterns. History of Present Illness Reason for Consultation: Left-sided pneumothorax Attending Physician: Jasmin Chew DO History of Present Illness 79-year-old female who presented to the hospital to the ER due to a syncopal episode at her primary care office. She was brought to the ER and underwent chest x-ray which revealed a moderate size left pneumothorax. She then had a CT chest which confirmed the findings. On arrival she had evidence of hypoxemia was placed on a 15 L nonrebreather with improvement of her saturations. A small bore chest tube was placed in the left hemithorax by the ED physician with significant improvement of the pneumothorax. Chest x-ray today revealed near complete resolution. Chest tube was clamped. She is doing well at this time and denies any shortness of breath or chest pain. She is lying in bed. She notes brief tobacco abuse when she was in high school. 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 She has no significant secondhand tobacco exposures and no significant history of pulmonary disease that she is aware of. She denies any history of asthma or COPD. Allergies Allergy/AdvReac Type Severity Reaction Status Date / Time No Known Allergies Allergy Verified 10/17/24 13:03 Home Medications Medication Instructions Recorded Confirmed Type epinephrine 0.125 mg/actuation 1 puff inhalation DIRECTED PRN 10/08/24 10/17/24 History aerosol inhaler (Primatene Mist) Shortness Of Breath Or Wheezing naproxen sodium 220 mg tablet 220 mg PO Q8H PRN Pain 10/08/24 10/17/24 History (Aleve) aspirin 81 mg tablet,delayed 81 mg PO DAILY #0 tabs 10/11/24 10/17/24 Rx release sacubitril 24 mg-valsartan 26 mg 1 tab PO BID #60 tabs 10/11/24 10/17/24 Rx tablet (Entresto) furosemide 40 mg tablet (Lasix) 40 mg PO DAILY #30 tabs 10/17/24 10/17/24 Rx potassium chloride 10 mEq 20 meq (2 x 10 mEq) PO BID 30 days 10/17/24 10/17/24 Rx capsule,extended release #120 caps Patient History Medical History (Updated 10/18/24 @ 00:42 by Jasmyn Bernstein) Stroke Social History (Updated 10/17/24 @ 13:07 by Yajaira Huang) Smoking Status: Former smoker Tobacco Type: Cigarettes Age Started Using Tobacco: 15; Age Quit Using Tobacco: 15; packs per day: 0.01; Hx Alcohol Use: Yes Alcohol type: beer Hx Substance Use: No Preferred Language: Citizen Of [place] Communication Ability: Effective 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 Patient is in no apparent distress. Patient is well-developed. Eyes: Pupils are equal round and reactive to light. Conjunctivae are normal. Anicteric sclera. Ears nose, mouth and throat: Mallampati class 2. Normal posterior oropharynx. Uvula is midline. Neck: Trachea is midline. Visual inspection is normal. Respiratory: Clear to auscultation bilaterally. No use of accessory muscles. No significant clubbing noted. Left small bore chest tube in place and sutured. Cardiovascular: Regular rate and rhythm. No murmurs. No edema. Gastrointestinal: Normal bowel sounds, soft, nontender and nondistended. No hepatosplenomegaly noted. Musculoskeletal: No cyanosis. Patient is able to move all extremities. Streng th is 5 out of 5 in the upper and lower extremities. Skin: No rashes, warm dry and intact. Neurologic: No obvious focal neurological deficits seen. Psychiatric: Alert and oriented x3 with a euthymic affect. Results & Data Results & Data Vital Signs (Past 12 Hours) Vital Signs Temp Pulse Pulse Resp BP BP Pulse Ox 10/18/24 09:15 73 19 98 10/18/24 08:49 102/48 L 10/18/24 08:48 67 23 98 10/18/24 08:00 72 15 98 10/18/24 08:00 10/18/24 08:00 10/18/24 08:00 10/18/24 08:00 64 10/18/24 07:00 76 16 97 10/18/24 07:00 37.0 C 10/18/24 03:57 36.7 C 67 18 108/57 L 97 10/18/24 02:00 36.7 C 67 16 121/66 96 10/18/24 00:45 64 10/18/24 00:45 36.7 C 72 16 97 10/18/24 00:15 69 19 123/73 99 10/17/24 23:00 73 16 156/85 H 98 10/17/24 22:24 71 15 136/78 99 O2 Del Method O2 Del Method 10/18/24 09:15 10/18/24 08:49 10/18/24 08:48 10/18/24 08:00 10/18/24 08:00 Room Air 10/18/24 08:00 Room Air 10/18/24 08:00 Room Air 10/18/24 08:00 10/18/24 07:00 10/18/24 07:00 10/18/24 03:57 Room Air 10/18/24 02:00 Room Air 10/18/24 00:45 10/18/24 00:45 Room Air 10/18/24 00:15 Room Air 10/17/24 23:00 10/17/24 22:24 PG Care Time/CCT Total # of Minutes Spent Total Time Spent with Patient: Total time spent is greater than 50% in coordination of care (as documented) at patient's floor/unit and/or counseling patient: Coding Level of Care Code 91702 INT INP/OBS CARE 2/55MIN Diagnoses Pneumothorax J93.9 Syncope R55
--- NOTE | 2024-10-18 10:56 | XRay Report ---
XR chest 1V portable CLINICAL HISTORY: evaluate PTX after chest tube clamped COMPARISON STUDY: 10/18/2024 and 10/17/2024 FINDINGS: Stable small bore left chest tube. Stable trace left apical pneumothorax. No consolidation or pleural effusion seen. IMPRESSION: Stable trace left pneumothorax. ACT 112: Negative or not required by law. Electronically signed by: Jayson Damon M.D. 10/18/2024 10:55 AM
[2024-10-18] MEDS: CEFEPIME 2000MG 2,000 MG/20 ML SYR IV SCH (11:06)
--- NOTE | 2024-10-18 12:20 | Electrocardiogram Report ---
Test Reason : Blood Pressure : */* mmHG Vent. Rate : 73 BPM Atrial Rate : 73 BPM P-R Int : 168 ms QRS Dur : 126 ms QT Int : 440 ms P-R-T Axes : 73 -78 80 degrees QTcB Int : 484 ms Normal sinus rhythm with sinus arrhythmia Right bundle branch block Left anterior fascicular block Bifascicular block Abnormal ECG When compared with ECG of 17-Oct-2024 14:50, No significant change was found Confirmed by Julio César Perez ([id number]) on 10/18/2024 12:20:21 PM Referred By: Prasad Estevez Confirmed By: Julio César Perez
--- NOTE | 2024-10-18 13:29 | Procedure Note ---
Procedure Note Date of Service October 18, 2024 Chest tube removal: Verbal consent obtained from the patient prior to procedure. Timeout performed. Dressing was taken down. Sutures were removed. Chest tube was removed upon exhalation. Chest tube was revealed to be intact upon removal. Occlusive dressing placed over the chest tube. Patient tolerated removal well. Pulmonary services will sign off at this time. Please call questions. [facility] [place]odes (Charges) Pulmonary/Thoracic Procedure 1: Pulmonary and Thoracic: 81013 Remove lung catheter Coding CPT Codes Pulmonary/Thoracic - Pulmonary and Thoracic: 17186 Remove lung catheter ([id number]) Additional Codes Date of Service ([email or web address])
[2024-10-18] MEDS ORDERED: LEVALBUTEROL HCL 0.63 MG/3 ML NEB NEB PRN (13:35)
[2024-10-18] MEDS: MIRTAZAPINE TAB 15 MG TAB PO SCH (19:29)
[2024-10-18] MEDS ORDERED: cefTRIAXone SODIUM 2,000 MG/50 ML BAG IV SCH (20:00)
[2024-10-19 02:14] VITALS: TEMP 98.2
[2024-10-19 04:44] LABS: Hematocrit (blood only) 35.7 % (37.0-47.0); Hemoglobin 11.6 g/dl (12.0-16.0); Immature Granulocytes # (auto) 0.01 K/uL (0.01-0.20); Immature Granulocytes % (auto) 0.2 %; Mean Corpuscular Hemoglobin 28.0 pg (25.0-34.0); Mean Corpuscular Volume 86.2 fL (80.0-100.0); Platelet Count 131 K/uL (130-400); RDW Standard Deviation 42.3 fL (36.4-46.3); Red Blood Count 4.14 M/uL (4.20-5.40); White Blood Count 4.51 K/ul (4.8-10.8)
[2024-10-19 05:02] LABS: Alanine Aminotransferase 4.0 U/L (7-52); Albumin Globulin Ratio 1.5 (0.9-2); Alkaline Phosphatase 45.0 U/L (34-104); Anion Gap 6.0 (3-11); Bilirubin,Total 0.6 mg/dl (0.2-1.0); Blood Urea Nitrogen 22.0 mg/dl (6-23); Calcium 8.7 mg/dl (8.6-10.3); Carbon Dioxide 27.0 mmol/L (21-32); Chloride 106.0 mmol/L (98-107); Creatinine Clr Calc Pharmacy 36.0 ml/min; Globulin 2.3 gm/dl (2.5-4.0); Glucose 88.0 mg/dl (70-99(Fasting)); Magnesium 2.2 mg/dl (1.7-2.4); Potassium 3.8 mmol/L (3.5-5.1); Sodium 139.0 mmol/L (136-145); Total Protein 5.7 gm/dl (6.0-8.3)
[2024-10-19 08:34] VITALS: O2SAT 98
[2024-10-19] MEDS: THIAMINE HCL 200 MG in SODIUM CHLORIDE 0.9% 50 ML IV SCH (09:29)
[2024-10-19 10:31] VITALS: BP 137/71; PULSE 71; RESP 22
--- NOTE | 2024-10-19 12:04 | Palliative Care Consultation ---
Date of Consultation October 19, 2024 Assessment & Plan (1) SOB (shortness of breath) on exertion: Pt recently admitted for similar complaints, and states that her breathing is "normal now" and does not appear to be dyspneic on RA at rest. No signs of conversational dyspnea. Pt to be discharged to home with [facility] and son requests oxygen at home for symptom management as she does get SOB with exertion. (2) Encounter for hospice care discussion: Spoke with pt's son via phone from 09:40 - 10:25, we discussed pt's values and goals of care. Sukhjinder expressed that the pt has avoided medical interventions of any kind for most of her life. He shared concern that she has undiagnosed dementia and has good days and bad days as for as her cognitive abilities. He shared that she lives in a trailer on his property and he is available to assist with all ADLs and iADLs as needed. He shared concern that she is getting sicker and worries that she does not want to follow up with necessary chronic disease management after discharge. Sukhjinder shared that he has spoken with the pt's PCP a nd was told that Hospice would be appropriate given pt's wish to avoid future hospitalizations. He shared that he will be meeting with inbound customer service representative from [facility] at hospital later this morning. Discussed hospice benefit: an interdisciplinary program offered by nurses, nurses aides, social workers, chaplains and a medical office administrator for patients with a terminal condition and a life expectancy of less than 6 months. This is covered by Medicare at 100%/no out of pocket expense to patient and all meds/supplies needed by patient for the reason they are on hospice are paid for/covered by hospice. The goal is assure quality of life of the patient in their home setting (home, [facility], inpatient hospice setting) by providing symptoms management, psychosocial and spiritual support. However, they cannot offer 24 hours care and if the family is unable to provide that care, they will have to consider personal care with out of pocket cost vs. [facility] placemen t. We discussed the goals of hospice as a patient service and the goals of care; we discussed EOL trajectories and transitions sabiha the emotional impact of realizing mortality as a concrete reality from prior abstract considerations. Pt was reassured that no matter where they are along this trajectory, they are not alone - their medical team will remain by their side through their journey. Discussed the pros/cons of accepting help when especially weakened and distressed by pain-which would also help provide relief/decrease caregiver burden/strain. Sukhjinder expressed that he has been told by family that if they adopt hospice care, the patient would not be able to come back to the hospital even if she got sicker. We discussed that with comfort directed care, emergent symptoms are managed at home as best possible and if pt comfort cannot be achieved at home or if pt requires higher level of care than can be offered at home, hospice team would arrange for transport of patient to a facility where she can get the appropriate level of care. We discussed that transfer to a hospital or SNF would be for the purpose of ongoing comfort directed/hospice care rather than life prolonging treatments. We briefly discussed code status and that given the goal of comfort directed care is to ensure comfort while allowing for a peaceful, natural code status would be DNR/DNI. (3) Counseling regarding goals of care: as above (4) Comfort measures only status: Sukhjinder requests DNR/DNI/[employer] status and discharge to home with hospice care. He shared that the only DME required at this time will be oxygen. Plan [employer], pending discharge home with hospice History of Present Illness Reason for Consultation: goals of care Requesting Physician: Jasmin Chew DO Attending Physician: Jasmin Chew DO History of Present Illness Ms Islas is a 79y female with a past medical history including left anterior hemiblock, CHF, acute on chronic respiratory failure, and hypertension. The patient was sent to ED from her PCPs office today, due to an acute episode of respiratory distress lasting about 30 to 45 seconds. Her oxygen level was reportedly 40% on EMS pulse ox machine. she was placed on 15 L nasal cannula, then nonrebreather mask, and saturations went to 98%. Patient improved alertness as she was transported to the ED. In Ed CT revealed Left tension pneumothorax/displaced heart and trachea to the right requiring left chest tube placement, with improvement in patient's symptomatology. She was admitted to telemetry for serial cardiac enzymes, serial EKG's, cardiac rhythm monitoring and a 2-D echocardiogram with Dopplers. Allergies Allergy/AdvReac Type Severity Reaction Status Date / Time No Known Allergies Allergy Verified 10/17/24 13:03 Home Medications Medication Instructions Recorded Confirmed Type epinephrine 0.125 mg/actuation 1 puff inhalation DIRECTED PRN 10/08/24 10/17/24 History aerosol inhaler (Primatene Mist) Shortness Of Breath Or Wheezing naproxen sodium 220 mg tablet 220 mg PO Q8H PRN Pain 10/08/24 10/17/24 History (Aleve) aspirin 81 mg tablet,delayed 81 mg PO DAILY #0 tabs 10/11/24 10/17/24 Rx release sacubitril 24 mg-valsartan 26 mg 1 tab PO BID #60 tabs 10/11/24 10/17/24 Rx tablet (Entresto) furosemide 40 mg tablet (Lasix) 40 mg PO DAILY #30 tabs 10/17/24 10/17/24 Rx potassium chloride 10 mEq 20 meq (2 x 10 mEq) PO BID 30 days 10/17/24 10/17/24 Rx capsule,extended release #120 caps Patient History Medical History (Updated 10/19/24 @ 12:03 by EMMETT Melgoza) Stroke Social History (Updated 10/17/24 @ 13:07 by Yajaira Huang) Smoking Status: Former smoker Tobacco Type: Cigarettes Age Started Using Tobacco: 15; Age Quit Using Tobacco: 15; packs per day: 0.01; Hx Alcohol Use: Yes Alcohol type: beer Hx Substance Use: No Preferred Language: Botswanan Communication Ability: Effective Director Of Digital Technology Required: No Beliefs That Will Affect Care: None Current Living Situation: Alone Current Living Situation Comment: home alone; son lives next door Other Information That Helps Us Care for You: No Feels Safe at Home: Yes Safety Concerns: Feels Safe At This Time Dental Care, Regularly: No Physical Activity Frequency: Does not Exercise Seatbelt Use: always Sunscreen Use: No Assistive Devices: Walker Review of Systems Review of Systems: All systems reviewed & are unremarkable except as noted in Subjective Physical Exam Constitutional: WD/WN, vitals as above ENMT: external ear and nose normal, oropharynx normal Neck: trachea midline, no thyromegaly Respiratory: normal respiratory effort, lungs clear to auscultation Gastrointestinal (Abdomen): normal bowel sounds, soft, nontender, no hepatosplenomegaly Musculoskeletal: no cyanosis or clubbing, extremities motor strength 5/5 Skin: no rashes, warm and dry Neurologic: PERRL, EOMI, accommodation nl, no face palsy, no dysarthria Psychiatric: Orientation: oriented to person and oriented to place Affect: + flat affect Results & Data Vital Signs (Past 12 Hours) Vital Signs Temp Pulse Pulse Resp BP Pulse Ox O2 Del Method 10/19/24 10:30 71 22 137/71 Room Air 10/19/24 07:35 70 19 126/59 L 98 Room Air 10/19/24 07:07 61 10/19/24 02:13 36.8 C 62 16 108/56 L 97 Room Air Laboratory Results Abnormal lab results 10/18/24 10/18/24 10/19/24 Range/Units 15:57 21:33 04:06 WBC 4.51 L (4.8-10.8) K/ul RBC 4.14 L (4.20-5.40) M/uL Hgb 11.6 L (12.0-16.0) g/dl Hct 35.7 L (37.0-47.0) % MPV 12.8 H (9.4-12.4) fL BUN/Creatinine Ratio 24.4 H (10-20) AST 8 L (13-39) U/L ALT 4 L (7-52) U/L Troponin I High Sens 18.8 H 22.3 H 20.2 H (0-14) pg/ml Total Protein 5.7 L (6.0-8.3) gm/dl Globulin 2.3 L (2.5-4.0) gm/dl Diagnostic Findings Chest CT 10/17/24 16:07 EXAMINATION: Chest CT with CLINICAL HISTORY: Hypoxia, new left pneumothorax PRIORS: 10/10/2024 chest radiograph TECHNIQUE: Contiguous axial images were obtained through the chest with the use of intravenous contrast. Sagittal and coronal reformations are supplied. FINDINGS: A moderate right pneumothorax is present, appearing since the chest radiograph. Allowing for rotation, the heart and trachea shifted to the right hemithorax. 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 Diffuse aneurysmal dilatation of the aorta is present. Allowing for nongated technique, the ascending aorta measures 3.4 x 3.5 cm at the level of the main pulmonary artery. The descending aorta measures approximately 3.0 x 3.3 cm at this level. The mid descending thoracic aorta measures 3.5 x 3.3 cm. The distal thoracic aorta is tortuous. Mural thrombus present within the aorta wall,. The distal thoracic aorta measures 3.1 x 3.4 cm, also with advanced atherosclerotic disease. Moderate bilateral pleural effusions present, improved in the interval. Heart size is extremely enlarged with dilatation of the left ventricle and left atrium, no further characterized. No large pericardial effusion. Calcified hilar and mediastinal lymph nodes represent prior granulomatous exposure. Trachea patent. No airspace consolidation to suggest pneumonia. Moderate to advanced osseous demineralization noted. Moderate kyphosis and degenerative change of the thoracic spine. No displaced fracture identified IMPRESSION: 1. Known left pneumothorax, moderate in size, with tension on the mediastinum, shifting the heart and trachea to the right. The critical results protocol was activated at 6:56 PM on 10/17/2024. 2. Moderate bilateral pleural effusions. 3. 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 The integrity of the aortic wall is not fully evaluated on the current examination. Vascular surgery consultation could be considered if clinically appropriate. ACT 112: Positive. There are findings on this examination that require communication between the performing entity and the patient following Patient Test Result Information Act ([place] ACT 112) guidelines. Electronically signed by Kendal Freitas 10-17-2024 6:[address] 10/17/24 16:07 Clinical History: Hypoxia Technique: Axial computed tomography images were obtained of the brain without intravenous contrast. Findings: There is diffuse cerebral atrophy, within expected limits for the patient's age. Areas of decreased attenuation are seen within the periventricular white matter, likely representing chronic small vessel ischemic disease. There is no definite sign of acute or old infarction. No intracranial hemorrhage is evident. No definite mass lesion is seen on this noncontrast examination. There is no midline shift or other form of herniation. No hydrocephalus is seen. No fracture is identified. The orbits and the visualized paranasal sinuses appear unremarkable. The mastoid air cells appear clear. Impression: 1. Cerebral atrophy and chronic small vessel ischemic disease 2. Otherwise unremarkable noncontrast CT of the brain Electronically signed by Denny Bianchi 10-17-2024 6:10 PM Chest X-Ray 10/18/24 11:00 XR chest 1V portable CLINICAL HISTORY: evaluate PTX after chest tube clamped COMPARISON STUDY: 10/18/2024 and 10/17/2024 FINDINGS: Stable small bore left chest tube. Stable trace left apical pneumothorax. No consolidation or pleural effusion seen. IMPRESSION: Stable trace left pneumothorax. ACT 112: Negative or not required by law. Electronically signed by: Jayson Damon M.D. 10/18/2024 10:55 AM Medications Administered Current Inpatient Medications Acetaminophen (Acetaminophen 1000 Mg/100 Ml Iv) 1,000 mg IV Q8H PRN PRN Reason: Pain or Fever Stop: 10/21/24 00:51 Heparin Sodium (Porcine) (Heparin Sod 5,000 Unit/0.5 Ml Vial) 5,000 units SQ Q8 BULMARO Stop: 11/18/24 13:59 Thiamine HCl 200 mg/ Sodium (Chloride) 52 mls @ 210 mls/hr IV QAM BULMARO Stop: 11/18/24 09:14 Last Infusion: 10/19/24 10:15 Dose: Infused Levalbuterol HCl (Levalbuterol Hcl 0.63 Mg/3 Ml Neb) 0.63 mg NEB Q6R PRN; Protocol PRN Reason: Shortness Of Breath Or Wheezing Stop: 11/17/24 08:59 Mirtazapine (Mirtazapine Tab 15 Mg Tab) 15 mg PO HS BULMARO Stop: 11/17/24 20:59 Last Admin: 10/18/24 19:29 Dose: 15 mg Morphine Sulfate (Morphine Sulfate 4 Mg/Ml 1 Ml Carp\\Vial) 4 mg IV Q3H PRN PRN Reason: Severe Pain (Scale 7, 8, 9,10) Stop: 11/01/24 00:51 Morphine Sulfate (Morphine Sulfate 2 Mg/Ml Carp) 2 mg IV Q3H PRN PRN Reason: Moderate Pain (Scale 4, 5, 6) Stop: 11/01/24 00:51 Ondansetron HCl (Ondansetron Inj 2 Mg/Ml 2 Ml Vial) 4 mg IV Q6H PRN PRN Reason: NAUSEA/VOMITING Stop: 11/17/24 00:51 PG Care Time/CCT Total # of Minutes Spent Total Time Spent with Patient: Total time spent is greater than 50% in coordination of care (as documented) at patient's floor/unit and/or counseling patient: Advanced Care Planning 16797 Advanced Care Planning 30 [place] [address] IN/OBS CONSULT LVL 4,60M Patient Type New History Expanded Problem Focused Exam Expanded Problem Focused Medical Decision Making Low Complexity Diagnoses SOB (shortness of breath) on exertion R06.02 Encounter for hospice care discussion Z71.89 Counseling regarding goals of care Z71.89 Comfort measures only status Z51.5 Additional Codes Advanced Care Planning - 14429 Advanced Care Planning 30 Min: 27609 Advanced Care Planning 30 Min ([id number])
[2024-10-19] MEDS ORDERED: HEPARIN SOD 5,000 UNIT/0.5 ML VIAL SQ SCH (14:00)
--- NOTE | 2024-10-19 15:11 | Discharge Summary ---
Discharge Summary Date of Service October 19, 2024 Principal Dx & Hospital Course #1 = Principal Diagnosis (1) Syncope: Sangeeta Islas is a 79 yo woman with PMH of CHF (EF of 20%), she was recently dc from [facility] for volume overload, CHF exacerbation. she been in such as poor health that family is working with PCP about arranging hospice care. however, she's went to her PCP office and found to has agonia breathing with O2 of 40% she was started on oxygen later increased to 15 liter via non-rebreather mask. brought to our ED by EMS, found to has pneumothorax and s/p chest tube on the left side. there was no PCU bed and overflow to ICU her chest tube was removed on oct 18, 2024 morning and she maintaining her oxygen on room air she's denied any chest pain or shortness of breath. family requested for arrange of hospice care. family requested patient remained on cardiac regime to optimize her heart function. however, the son and grand-daughter emphasized that she's has poor functional status. and has limited life expectancy we discussed that her BP is soft in the 95s and will benefit from repeat CXR to r/o recurrent pneumothorax and infectious workup. after lengthy discussion, family requested for immediate discharge but agreeable for empiric antibiotics for 10 days (2) Pneumothorax: (3) Acute respiratory failure with hypoxia: (4) Acute UTI (urinary tract infection): Plan Sangeeta Islas is an 79-year-old female with a PMH including left anterior hemiblock, CHF, acute on chronic respiratory failure, and hypertension. she was recently in the hospital for CHF exacerbation, pulmonary edema, hypoxic, hypokalemia her EF was found to be 20% on echo on 10/17/2024, shes was at PCP office and has hypoxia, desatuarate to 40%. The patient brought to our ED via EMS from PCP office. , and began to feel unwell, and her PCP thought that she was having an acute respiratory failure event lasting about 30 to 45 seconds. oxygen level was reportedly 40% on EMS pulse ox machine. No CPR was performed. placed on 15 liter oxygen but EMS reports that the patient initially had agonal respirations. They changed her from 15 L nasal cannula to nonrebreather mask, and saturations went to 98%. Patient improved alertness as she was transported here. found to has tension pneumothorax and displaced heart and trachea to the right, s/p chest tube to the left heart no bed in PCU and overflow to ICU. Syncope- Patient was at her doctor's office on 10/17, when he noted her developing decreasing responsiveness, noted to be acute respiratory failure with hypoxia, and she then had an unresponsive episode lasted 30 to 45 seconds. telemetry, serial cardiac enzymes, serial EKG's, cardiac rhythm monitoring and a 2-D echocardiogram with Dopplers. duplex US to r/o DVT Differential including not limited to, vasovagal, complication of left pneumothorax and displacement urgent treatment with right, urinary tract in fection here sort soreness Left tension pneumothorax/displaced heart and trachea to the right- ED discussed with pulmonology Dr. Rosas. Chest tube placed left chest, with improved patient's symptomatology. Initial troponin 14.2, follow-up pending no chest pain Acetaminophen 650 mg by mouth every 6 hours as needed for mild pain or fever Morphine sulfate 2 mg IV every 3 hours as needed for moderate pain Morphine sulfate 4 mg IV every 3 hours as needed for severe pain Acute urinary tract infection- Follow urine culture and sensitivity Continue ceftriaxone 2 g IV every 24 hours begun in the ED Complete IV fluids normal saline at 200 mL/h in the ED, then lactated Ringer's at 80 mL/h times 1 L Hypertension- Continue aspirin, Hold furosemide and Entresto due to low blood pressure Give albumin 50 g IV x 1 for albumin 3.1. Admission HPI Per Admitting Provider the patient is an 79-year-old female with a past medical history including left anterior hemiblock, CHF, acute on chronic respiratory failure, and hypertension. The patient was taken to the emergency department via EMS after she was in her PCPs office today, and began to feel unwell, and her PCP thought that she was having an acute respiratory failure event lasting about 30 to 45 seconds. Her oxygen level was reportedly 40% on EMS pulse ox machine. No CPR was performed. She did get placed on nasal cannula and was turned up to 15 L/min. EMS reports that the patient initially had agonal respirations. They changed her from 15 L nasal cannula to nonrebreather mask, and saturations went to 98%. Patient improved alertness as she was transported to the ED. At the time of my assessment, patient was on nasal cannula, and able to converse clearly and efficiently. Discharge Exam VITALS: Reviewed. WEIGHT/BMI reviewed. GEN: Healthy appearing, well-developed, NAD. -Head: NC/AT; NECK: Supple, with no masses. CV: RRR, no m/r/g. LUNGS: CTAB, no w/r/c. decrease breath sound. ABD: Soft, NT/ND, NBS, no masses or organomegaly. : N/A SKIN: pale. MSK: No deformities, Normal gait. EXT: No clubbing, cyanosis, or edema. Discharge Plan Discharge Items Patient Disposition: Hospice - Home Reason For Visit: L TENSION PTX W/RIGHT CARDIAC/TRACHEAL DEVIATION Discharge Diagnosis: left side tension pneumothorax acute hypoxic respiratory failure hypotension congestive heart failure deconditioning Condition on Discharge: Fair Activity: Resume your previous activity Lifting: Wait until after follow-up appointment Non-emergency contact: Primary Care Provider Call non-emergency contact if: you have any medication questions and your symptoms worsen Follow-up/Referrals: Prasad Estevez, [Primary Care Provider] - Diet: Low Sodium (2gm) Addtl Attending Provider Instructions: you will follow up with home hospice you have the right to return to emergency room for medical attention Pending Studies at Discharge: No Stand-Alone Forms: My [facility] Medications and DC Order Prescriptions: New levalbuterol HCl 0.63 mg/3 mL Solution For Nebulization 0.63 mg NEB Q6R 30 Days Qty: 30 0RF amoxicillin-pot clavulanate 875-125 mg tablet 1 tab PO Q12H 10 Days Qty: 20 0RF doxycycline hyclate 100 mg tablet 100 mg PO BID 10 Days Qty: 20 0RF Continued potassium chloride 10 mEq capsule, extended release 20 meq PO BID 30 Days Qty: 120 6RF furosemide [Lasix] 40 mg tablet 40 mg PO DAILY Qty: 30 3RF naproxen sodium [Aleve] 220 mg Tablet 220 mg PO Q8H PRN (Reason: Pain) Primatene Mist 0.125 mg/actuation Hfa Aerosol Inhaler 1 puff INHALATION DIRECTED PRN (Reason: Shortness Of Breath Or Wheezing) Rx Instructions: may repeat once after 1 minute aspirin 81 mg Tablet,Delayed Release (Dr/Ec) 81 mg PO DAILY Qty: 0 0RF No Action sacubitril-valsartan [Entresto] 24-26 mg tablet 1 tab PO BID Qty: 60 0RF Discharge Orders: Discharge Order (Routine); Ordered 10/19/24 Ordered By: Jasmin Noonan/Other Patient Handouts: Hospice Managing Pain, Hospice- Caring for Your Loved One, Pneumothorax (Collapsed Lung), Heart Failure Assessment, ED Pneumothorax, Spontaneous Admission Data Admit Date/Time: 10/17/24 23:53 Attending Provider: Jasmin Chew Admit Provider: Surya Trinh Primary Care Provider: Prasad Estevez Other Providers: Surya Trinh; Jaime Rosas; [facility]; Jessica Waterman Other Interventions: Discharge Summary Assessment (RN) Last Done: 10/19/24 14:19 Hospital Stay Data Consultations 10/17/24 22:58 ED Decision to Admit Stat 10/18/24 00:52 Consult Pulmonology Routine 10/18/24 17:38 Consult Palliative Care Routine Diagnostic Imagining Performed 10/17/24 16:07 CT chest diagnostic w con Stat CT head/brain wo con Stat Pending Results Patient Have Any Pending Studies at Discharge: No Discharge Instructions Given to Patient (Per Discharging Provider) you will follow up with home hospice you have the right to return to emergency room for medical attention Total Time Total Time Spent Total Time Spent (In Minutes): 35 Coding Level of Care Code 37788 INP/OBS DISCH >30 MIN Diagnoses Syncope R55 Pneumothorax J93.9 Acute respiratory failure with hypoxia J96.01 Acute UTI (urinary tract infection) N39.0 Time Spent (min) 35
--- NOTE | 2024-10-21 06:24 | Electrocardiogram Report ---
Test Reason : Blood Pressure : */* mmHG Vent. Rate : 65 BPM Atrial Rate : 65 BPM P-R Int : 152 ms QRS Dur : 132 ms QT Int : 448 ms P-R-T Axes : 59 -82 83 degrees QTcB Int : 465 ms Sinus rhythm with frequent Premature ventricular complexes Left axis deviation Right bundle branch block Abnormal ECG When compared with ECG of 18-Oct-2024 05:14, Premature ventricular complexes are now Present Confirmed by Ricardo Ruiz ([id number]) on 10/21/2024 6:24:25 AM Referred By: Prasad Estevez Confirmed By: Ricardo Ruiz
== END 2024-10-19 14:59 | disposition hospice, home (50) | DRG 199 ==
LOC: ED 14:45 → 1E 23:53 → SUATTDRO 23:53 → 1E 10-18 00:15

== ENCOUNTER 2024-12-15 12:29 | Inpatient (IN) ==
[2024-12-15] MEDS: PROCHLORPERAZINE 2 ML IV ONE (12:55)
[2024-12-15] MEDS: cefTRIAXone SODIUM 2,000 MG/50 ML BAG IV STA (12:55)
[2024-12-15 13:11] VITALS: TEMP 97.3
[2024-12-15 13:25] LABS: Hematocrit (blood only) 34.7 % (37.0-47.0); Hemoglobin 11.5 g/dl (12.0-16.0); Immature Granulocytes # (auto) 0.03 K/uL (0.01-0.20); Immature Granulocytes % (auto) 0.3 %; Mean Corpuscular Hemoglobin 29.9 pg (25.0-34.0); Mean Corpuscular Volume 90.1 fL (80.0-100.0); Platelet Count 242 K/uL (130-400); RDW Standard Deviation 50.1 fL (36.4-46.3); Red Blood Count 3.85 M/uL (4.20-5.40); White Blood Count 9.27 K/ul (4.8-10.8)
--- NOTE | 2024-12-15 13:30 | XRay Report ---
XR chest 1V portable CLINICAL HISTORY: Sepsis COMPARISON STUDY: 10/18/2024 FINDINGS: Stable mild cardiomegaly without pulmonary vascular congestion. Stable mild aortic ectasia and tortuosity. No consolidation or pleural effusion seen. No pneumothorax. IMPRESSION: No acute findings. ACT 112: Negative or not required by law. Electronically signed by: Jayson Damon M.D. 12/15/2024 1:29 PM
[2024-12-15 13:40] LABS: Alanine Aminotransferase 6.0 U/L (7-52); Albumin Level 3.6 gm/dl (3.4-5.0); Alkaline Phosphatase 84.0 U/L (34-104); Anion Gap 12.0 (3-11); Bilirubin,Total 0.7 mg/dl (0.2-1.0); Blood Urea Nitrogen 52.0 mg/dl (6-23); Calcium 9.5 mg/dl (8.6-10.3); Carbon Dioxide 22.0 mmol/L (21-32); Chloride 103.0 mmol/L (98-107); Creatinine Clr Calc Pharmacy 12.9 ml/min; Glucose 187.0 mg/dl (70-99(Fasting)); Magnesium 2.8 mg/dl (1.7-2.4); Potassium 6.2 mmol/L (3.5-5.1); Sodium 137.0 mmol/L (136-145); Total Protein 7.2 gm/dl (6.0-8.3)
--- NOTE | 2024-12-15 13:43 | Emergency Department Note ---
Impression & Plan Comfort measures only status, MARCOS (acute kidney injury), Acidosis, lactic, Acute hyperkalemia, Dry gangrene ED Provider Note NAME: EKNNY VENEGAS AGE: 79 SEX: F : 1945 ARRIVES VIA: Walk-In INFORMANT: Patient, DIL, son ED PROVIDER(S): Mayito Farley DO CHIEF COMPLAINT: Uncontrolled pain, toe infection HPI: This is a 79-year-old female with the PMHx of end-stage heart failure and vascular disease presenting to [facility] for further evaluation of foot infection. Patient is accompanied by family members who provide additional history. Family numbers report the patient has been in severe pain secondary to a foot infection. They report that there is necrosis of the toes and foot. They states that she is on home hospice. They state that they present today as they are no longer able to manage her 24/7 and her pain is uncontrolled. They report that she has been altered and weak. They deny fever or chills. No cough or congestion. Denies chest pain or palpitations. No shortness of breath. They deny abdominal pain, nausea and vomiting. No urinary complaints. No recent changes in bowel movements. Patient denies recent changes in medications or OTC supplements. Patient offers no other complaints, today. ADDITIONAL HISTORY OBTAINED: Per HPI Chronic Medical/Social Conditions Affecting Care: Per HPI PAST MEDICAL HISTORY: See Below PAST SURGICAL HISTORY: See Below FAMILY HISTORY: See Below SOCIAL HISTORY: See Below HOME MEDICATIONS: See Below ALLERGIES: See Below VITALS: See Below PHYSICAL EXAMINATION: GENERAL: Sitting up in bed, alert, well appearing, well nourished, no distress, non-toxic EYE EXAM: normal conjunctiva. OROPHARYNX: no exudate, no erythema, lips, buccal mucosa, and tongue normal and mucous membranes are moist NECK: supple, no nuchal rigidity, no adenopathy, non-tender LUNGS: Clear to auscultation. Normal chest wall mechanics HEART: no murmurs, regular rate, regular rhythm ABDOMEN: abdomen soft, non-tender, no masses, no rebound or guarding. BACK: Back is symmetrical on inspection and there is no deformity, no midline tenderness, no CVA tenderness. SKIN: no rashes and no bruising UPPER EXTREMITIES: upper extremities are grossly normal. LOWER EXTREMITIES: No pitting edema. Right big toe and long toe appeared to be necrotic. There is dry necrosis as well as some erythema. NEURO EXAM: Normal sensorium, GCS 14 with confusion and inattention, no gross weakness of arms, no gross weakness of legs. MEDICAL DECISION MAKING: Differential diagnoses includes but not limited to Dry gangrene, cellulitis, vascular disease, sepsis, electrolyte derangements, dehydration, uncontrolled pain, UTI In summary, this is a 79 year old female who presented with foot infection. Differential as above. Nursing notes and pertinent past medical records reviewed. Vital signs reviewed and the patient is hypertensive but otherwise afebrile and hemodynamically stable. History and presentation revealed ongoing symptoms for the last few days. Now unable to walk due to severe pain. She is also reported to be severely weak and altered. Patient is altered on my evaluation. Her right toe appears to have dry gangrene. Do believe this is likely secondary to a vascular phenomenon. Suspect the patient likely has significant vascular disease. Please note that the patient is on home hospice but the family is no longer able to care for her 31/08 and they are requesting further evaluation. Labs, imaging and therapeutics were ordered for the patient. After further discussions with the family members, they would like to focus on the patient's comfort rather than treating her acute conditions. Diagnostics interpreted by me include EKG and cardiac monitoring as listed below: -Cardiac Monitoring: An order was placed for continuous cardiac monitoring. The monitor shows a rate of 70-90s with regular rhythm. -ECG: Normal sinus rhythm with sinus arrhythmia at [address] segment changes in leads V2 and V3. Otherwise no significant ST segment changes to suggest STEMI. Intervals are within normal limits. Patient completed laboratory studies and imaging. CXR independently interpreted by me reveals no evidence of focal consolidation to suggest pna. No large pneumothorax or pleural effusion. No obvious displaced rib fracture. Results independently interpreted by me are Mild anemia. Patient has an MARCOS with significant hyperkalemia. Slight troponin leak. Patient has an elevated lactate. The patient was managed with IV antibiotics and fluids initially. We plan for further imaging and laboratory evaluation. Patient found to have severe sepsis likely secondary to possible cellulitis versus ischemic necrosis of the patient's right foot/toes. I did extensive discussions with the patient's family members. Patient's [id number] and son at the bedside. They report that she is currently on hospice. She has significantly declined. Patient is no longer able to care for herself. They do not have 24/7 care. They are unable to take the patient home at this time. They would like to proceed with comfort measures only. Would proceed with evaluation for inpatient hospice care. Patient is not able to be safely discharged at this time. For this reason the patient will be admitted to the hospital for LINE DANCER status. Ultimately, the decision was made to admit the patient for comfort measures only. I discussed the case with the hospitalist service via telephone/TigerText and they are agreeable to admit the patient to their services by Dr. Wilson. Based on the above, including the patient's age, coexisting illnesses, labs, imaging, and exam findings the decision to treat as an inpatient. I discussed the patient with the hospitalist team who recommended admission to their services. They received the medications, treatments, interventions indicated above and their condition remained guarded. I discussed my findings with the patient and their family and they understand and agree with the treatment plan. All patient / family questions were answered to their satisfaction. Consults/Care Managements Discussions: Per MDM ER treatment provided: See above Procedures:none Critical Care: None The chart was completed utilizing [employer] Speech voice recognition software. Grammatical errors, random word insertions, pronoun errors, and incomplete sentences are an occasional consequence of this system due to software limitations, ambient noise, and hardware issues. Any formal questions or concerns about the content, text, or information contained within the body of this dictation should be directly addressed to the physician for clarification. Past Med/Surg History Problem List (Updated 12/16/24 @ 22:56 by Mayito Farley DO) Dry gangrene (Acute) Acute hyperkalemia (Acute) Acidosis, lactic (Acute) MARCOS (acute kidney injury) (Acute) Comfort measures only status (Acute) Type [address] elevation Acute kidney injury Hyperkalemia Uncontrolled pain Ischemic necrosis of toe Cellulitis of right foot Severe sepsis Comfort measures only status Counseling regarding goals of care SOB (shortness of breath) on exertion Pneumothorax (Acute) Hypoxia (Acute) Syncope (Acute) Pressure ulcer, buttock Pressure ulcer of right ankle Acute respiratory failure Encounter for hospice care discussion Patient cannot afford medications Does not have health insurance Hypokalemia 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 Acute respiratory failure with hypoxia CHF (congestive heart failure) (Acute) Medical History (Updated 12/16/24 @ 22:56 by Mayito Farley DO) Stroke Social History (Updated 10/17/24 @ 13:07 by Yajaira Huang) Smoking Status: Unknown if ever smoked Tobacco Type: Cigarettes Age Started Using Tobacco: 15; Age Quit Using Tobacco: 15; packs per day: 0.01; Hx Alcohol Use: No Hx Substance Use: No Preferred Language: Serbian Communication Ability: Unable Real Estate Clerk Required: No Beliefs That Will Affect Care: None Current Living Situation: Family Current Living Situation Comment: home alone; son lives next door Feels Safe at Home: Yes Dental Care, Regularly: No Physical Activity Frequency: Does not Exercise Seatbelt Use: always Sunscreen Use: No Assistive Devices: Oxygen - Continuous, Walker and Other Allergies Allergies Allergy/AdvReac Type Severity Reaction Status Date / Time morphine Allergy Intermediate ITCHING Verified 12/15/24 15:08 PER PT'S SON Home Meds Home Medications Medication Instructions Recorded Confirmed clindamycin HCl 300 mg capsule 300 mg PO TID 12/15/24 12/15/24 oxycodone 10 mg tablet,crush 10 mg PO BID 12/15/24 12/15/24 resistant,extended release 12 hr (OxyContin) trazodone 50 mg tablet 50 mg PO HS PRN Insomnia 12/15/24 12/15/24 Results & Data (ED) Vital Signs Vital Signs - 24 hr 12/15/24 12:41 12/15/24 12:54 12/15/24 13:00 Temperature Temperature Source Pulse Rate 77 74 Pulse Rate [Apical] 76 Pulse Rate from SpO2 Sensor Respiratory Rate 20 17 Respiratory Effort / Characteristics Non-Labored Spontaneous Non-Labored Spontaneous Respiratory Depth Normal Normal Respiratory Pattern Regular Blood Pressure 91/56 L Blood Pressure [Left Arm] 99/37 L Blood Pressure Mean 67 Blood Pressure Mean [Left Arm] 57 Blood Pressure Position [Left Arm] Semi-fowlers Pulse Oximetry 92 91 Oxygen Delivery Method Room Air Room Air Sepsis Recent Fever Within 48 Hours No Sepsis New/Unexplained Change in Mental Status No Sepsis Action Taken by Nursing No Action Required 12/15/24 13:00 12/15/24 13:01 12/15/24 13:09 Temperature 36.3 C L Temperature Source Axillary Pulse Rate 77 76 Pulse Rate [Apical] Pulse Rate from SpO2 Sensor Respiratory Rate 18 17 Respiratory Effort / Characteristics Respiratory Depth Respiratory Pattern Blood Pressure 99/37 L Blood Pressure [Left Arm] Blood Pressure Mean 56 Blood Pressure Mean [Left Arm] Blood Pressure Position [Left Arm] Pulse Oximetry 90 91 Oxygen Delivery Method Room Air Sepsis Recent Fever Within 48 Hours Sepsis New/Unexplained Change in Mental Status Sepsis Action Taken by Nursing 12/15/24 13:15 12/15/24 13:30 12/15/24 13:45 Temperature Temperature Source Pulse Rate 81 79 Pulse Rate [Apical] Pulse Rate from SpO2 Sensor 83 Respiratory Rate 15 20 Respiratory Effort / Characteristics Respiratory Depth Respiratory Pattern Blood Pressure 110/55 L 106/58 L 107/60 Blood Pressure [Left Arm] Blood Pressure Mean 73 88 79 Blood Pressure Mean [Left Arm] Blood Pressure Position [Left Arm] Pulse Oximetry 91 93 Oxygen Delivery Method Sepsis Recent Fever Within 48 Hours Sepsis New/Unexplained Change in Mental Status Sepsis Action Taken by Nursing 12/15/24 13:45 12/15/24 14:00 12/15/24 14:15 Temperature Temperature Source Pulse Rate 94 H 96 H 86 Pulse Rate [Apical] Pulse Rate from SpO2 Sensor Respiratory Rate 16 13 22 Respiratory Effort / Characteristics Respiratory Depth Respiratory Pattern Blood Pressure 107/60 108/59 L 114/60 Blood Pressure [Left Arm] Blood Pressure Mean 79 80 72 Blood Pressure Mean [Left Arm] Blood Pressure Position [Left Arm] Pulse Oximetry 93 94 96 Oxygen Delivery Method Sepsis Recent Fever Within 48 Hours Sepsis New/Unexplained Change in Mental Status Sepsis Action Taken by Nursing 12/15/24 14:30 12/15/24 14:30 12/15/24 14:45 Temperature Temperature Source Pulse Rate 80 77 Pulse Rate [Apical] Pulse Rate from SpO2 Sensor 76 Respiratory Rate 16 12 Respiratory Effort / Characteristics Respiratory Depth Respiratory Pattern Blood Pressure 143/71 H 143/71 H Blood Pressure [Left Arm] Blood Pressure Mean 100 100 Blood Pressure Mean [Left Arm] Blood Pressure Position [Left Arm] Pulse Oximetry 93 97 Oxygen Delivery Method Sepsis Recent Fever Within 48 Hours Sepsis New/Unexplained Change in Mental Status Sepsis Action Taken by Nursing 12/15/24 14:45 12/15/24 14:45 12/15/24 14:45 Temperature Temperature Source Pulse Rate Pulse Rate [Apical] Pulse Rate from SpO2 Sensor Respiratory Rate Respiratory Effort / Characteristics Respiratory Depth Respiratory Pattern Blood Pressure 97/47 L 97/47 L 97/47 L Blood Pressure [Left Arm] Blood Pressure Mean 61 61 61 Blood Pressure Mean [Left Arm] Blood Pressure Position [Left Arm] Pulse Oximetry Oxygen Delivery Method Sepsis Recent Fever Within 48 Hours Sepsis New/Unexplained Change in Mental Status Sepsis Action Taken by Nursing 12/15/24 14:45 12/15/24 14:45 12/15/24 15:00 Temperature Temperature Source Pulse Rate Pulse Rate [Apical] Pulse Rate from SpO2 Sensor Respiratory Rate Respiratory Effort / Characteristics Respiratory Depth Respiratory Pattern Blood Pressure 97/47 L 97/47 L 121/64 Blood Pressure [Left Arm] Blood Pressure Mean 61 61 81 Blood Pressure Mean [Left Arm] Blood Pressure Position [Left Arm] Pulse Oximetry Oxygen Delivery Method Sepsis Recent Fever Within 48 Hours Sepsis New/Unexplained Change in Mental Status Sepsis Action Taken by Nursing 12/15/24 15:00 12/15/24 15:00 12/15/24 15:00 Temperature Temperature Source Pulse Rate Pulse Rate [Apical] Pulse Rate from SpO2 Sensor Respiratory Rate Respiratory Effort / Characteristics Respiratory Depth Respiratory Pattern Blood Pressure 121/64 121/64 121/64 Blood Pressure [Left Arm] Blood Pressure Mean 81 81 81 Blood Pressure Mean [Left Arm] Blood Pressure Position [Left Arm] Pulse Oximetry Oxygen Delivery Method Sepsis Recent Fever Within 48 Hours Sepsis New/Unexplained Change in Mental Status Sepsis Action Taken by Nursing 12/15/24 15:00 12/15/24 15:00 12/15/24 15:09 Temperature Temperature Source Pulse Rate 80 81 Pulse Rate [Apical] Pulse Rate from SpO2 Sensor 81 81 Respiratory Rate 12 14 Respiratory Effort / Characteristics Respiratory Depth Respiratory Pattern Blood Pressure 121/64 Blood Pressure [Left Arm] Blood Pressure Mean 81 Blood Pressure Mean [Left Arm] Blood Pressure Position [Left Arm] Pulse Oximetry 96 96 Oxygen Delivery Method Sepsis Recent Fever Within 48 Hours Sepsis New/Unexplained Change in Mental Status Sepsis Action Taken by Nursing 12/15/24 15:17 12/15/24 15:17 12/15/24 15:17 Temperature Temperature Source Pulse Rate Pulse Rate [Apical] Pulse Rate from SpO2 Sensor Respiratory Rate Respiratory Effort / Characteristics Respiratory Depth Respiratory Pattern Blood Pressure 165/82 H 165/82 H 165/82 H Blood Pressure [Left Arm] Blood Pressure Mean 127 127 127 Blood Pressure Mean [Left Arm] Blood Pressure Position [Left Arm] Pulse Oximetry Oxygen Delivery Method Sepsis Recent Fever Within 48 Hours Sepsis New/Unexplained Change in Mental Status Sepsis Action Taken by Nursing 12/15/24 15:17 12/15/24 15:17 Temperature Temperature Source Pulse Rate Pulse Rate [Apical] Pulse Rate from SpO2 Sensor Respiratory Rate Respiratory Effort / Characteristics Respiratory Depth Respiratory Pattern Blood Pressure 165/82 H 165/82 H Blood Pressure [Left Arm] Blood Pressure Mean 127 127 Blood Pressure Mean [Left Arm] Blood Pressure Position [Left Arm] Pulse Oximetry Oxygen Delivery Method Sepsis Recent Fever Within 48 Hours Sepsis New/Unexplained Change in Mental Status Sepsis Action Taken by Nursing Laboratory Data 12/15/24 12:50 12/15/24 12:50 Lab Results 12/15/24 12/15/24 Range/Units 12:50 13:29 WBC 9.27 (4.8-10.8) K/ul RBC 3.85 L (4.20-5.40) M/uL Hgb 11.5 L (12.0-16.0) g/dl Hct 34.7 L (37.0-47.0) % MCV 90.1 (80.0-100.0) fL MCH 29.9 (25.0-34.0) pg MCHC 33.1 (32.0-36.0) g/dL RDW Std Deviation 50.1 H (36.4-46.3) fL RDW Coeff of Ericka 15.1 H (11.5-14.5) % Plt Count 242 (130-400) K/uL MPV 11.0 (9.4-12.4) fL Immature Gran % (Auto) 0.3 % Neut % (Auto) 74.2 % Lymph % (Auto) 15.4 % Mclean % (Auto) 8.2 % Eos % (Auto) 0.9 % Baso % (Auto) 1.0 % Neut # (Auto) 6.88 H (1.40-6.50) K/uL Lymph # (Auto) 1.43 (1.20-3.40) K/uL Mclean # (Auto) 0.76 H (0.11-0.59) K/uL Eos # (Auto) 0.08 (0.00-0.50) K/uL Baso # (Auto) 0.09 (0.00-0.20) K/uL Immature Gran # (Auto) 0.03 (0.01-0.20) K/uL Sodium 137 (136-145) mmol/L Potassium 6.2 H* (3.5-5.1) mmol/L Chloride 103 (98-107) mmol/L Carbon Dioxide 22 (21-32) mmol/L Anion Gap 12 H (3-11) BUN 52 H (6-23) mg/dl Creatinine 2.63 H (0.6-1.2) mg/dl Est Cr Clr Drug Dosing 12.9 ml/min eGFR 17.85 BUN/Creatinine Ratio 19.8 (10-20) Glucose 187 H (70-99(Fasting)) mg/dl Lactate 3.1 H* (0.4-2.0) mmol/L Calcium 9.5 (8.6-10.3) mg/dl Magnesium 2.8 H (1.7-2.4) mg/dl Total Bilirubin 0.7 (0.2-1.0) mg/dl Direct Bilirubin 0.2 (0-0.2) mg/dl AST 12 L (13-39) U/L ALT 6 L (7-52) U/L Alkaline Phosphatase 84 (34-104) U/L Troponin I High Sens 25.5 H (0-14) pg/ml Total Protein 7.2 (6.0-8.3) gm/dl Albumin 3.6 (3.4-5.0) gm/dl Procalcitonin 0.14 (0-0.5) ng/ml Nasal Screen MRSA (PCR) Negative (Negative) Administered Medications Hydromorphone HCl (Hydromorphone Inj 0.5 Mg/0.5 Ml Syr) 0.5 mg IV Q3H PRN PRN Reason: Pain Stop: 12/29/24 18:34 Last Admin: 12/16/24 10:49 Dose: 0.5 mg Documented By: [email or web address] Co-signed By: BUTCH Admin: 12/16/24 07:02 Dose: 0.5 mg Documented By: [id number] Admin: 12/16/24 03:58 Dose: 0.5 mg Documented By: [id number] Admin: 12/16/24 00:50 Dose: 0.5 mg Documented By: [id number] Admin: 12/15/24 21:48 Dose: 0.5 mg Documented By: [id number] Admin: 12/15/24 18:43 Dose: 0.5 mg Documented By: BUTCH Lorazepam 0.5 mg/ Syringe 0.5 mls @ 2 mls/min IV Q4H PRN PRN Reason: Anxiety/Agitation Stop: 01/14/25 17:21 Last Admin: 12/16/24 12:39 Dose: 2 mls/min Documented By: BUTCH Discontinued Medications Albuterol (Albuterol 0.5% Neb Soln 2.5 Mg/0.5 Ml Vial) 10 mg NEB NOW STA Stop: 12/15/24 13:44 Last Admin: 12/15/24 14:03 Dose: Not Given Documented By: JOSE Dextrose (Dextrose 50% 50 Ml Syringe) 50 ml IV NOW STA Stop: 12/15/24 13:44 Last Admin: 12/15/24 14:04 Dose: Not Given Documented By: JOSE Hydromorphone HCl (Hydromorphone Bolus From Utility Accounts Director) 1 mg IV ONE STA Stop: 12/15/24 15:12 Last Admin: 12/15/24 18:00 Dose: Not Given Documented By: BUTCH Ceftriaxone Sodium (Rocephin) 2,000 mg in 50 mls @ 100 mls/hr IV NOW STA Stop: 12/15/24 13:12 Last Infusion: 12/15/24 13:58 Dose: Infused Documented By: Admin: 12/15/24 12:55 Dose: 100 mls/hr Documented By: JOSE Prochlorperazine (Compazine) 2 mls @ 1 mls/min IV ONE ONE Stop: 12/15/24 12:44 Last Admin: 12/15/24 12:55 Dose: 1 mls/min Documented By: JOSE Calcium Gluconate () 1,000 mg in 60 mls @ 240 mls/hr IV NOW STA Stop: 12/15/24 13:57 Last Admin: 12/15/24 14:03 Dose: Not Given Documented By: JOSE Insulin Human Regular 10 units (/ Syringe) 9.9 mls @ 3 mls/sec IV ONE STA Stop: 12/15/24 13:44 Last Admin: 12/15/24 14:04 Dose: Not Given Documented By: JOSE Sodium Chloride (Nss) 1,000 mls @ 15 mls/hr IV .Q24H BULMARO Stop: 12/29/24 15:11 Last Admin: 12/15/24 18:00 Dose: Not Given Documented By: BUTCH Imaging Data Radiologist's Impression: Chest X-Ray 12/15/24 12:43 XR chest 1V portable CLINICAL HISTORY: Sepsis COMPARISON STUDY: 10/18/2024 FINDINGS: Stable mild cardiomegaly without pulmonary vascular congestion. Stable mild aortic ectasia and tortuosity. No consolidation or pleural effusion seen. No pneumothorax. IMPRESSION: No acute findings. ACT 112: Negative or not required by law. Electronically signed by: Jayson Damon M.D. 12/15/2024 1:29 PM Discharge Plan Visit Data Chief Complaint: Toe Injury/Pain Stated Complaint: HOSPICE SENT, INFECTION IN TOE ED Provider: Mayito Farley Discharge Problem: Comfort measures only status, MARCOS (acute kidney injury), Acidosis, lactic, Acute hyperkalemia, Dry gangrene Patient Disposition: Admitted As Inpatient Condition: Serious Discharge Instructions Interventions: ED Discharge Assessment Last Done: 12/15/24 16:59
[2024-12-15] MEDS: CALCIUM GLUCONATE 1,000 MG/60 ML BAG IV STA (14:03)
[2024-12-15] MEDS: ALBUTEROL 0.5% NEB SOLN 2.5 MG/0.5 ML VIAL NEB STA (14:03)
[2024-12-15] MEDS: INSULIN HUMAN REGULAR PER UNIT 10 UNITS in SYRINGE 9.9 ML IV STA (14:04)
[2024-12-15] MEDS: DEXTROSE 50% 50 ML SYRINGE IV STA (14:04)
--- NOTE | 2024-12-15 14:09 | Electrocardiogram Report ---
Test Reason : Blood Pressure : */* mmHG Vent. Rate : 75 BPM Atrial Rate : 75 BPM P-R Int : 158 ms QRS Dur : 122 ms QT Int : 402 ms P-R-T Axes : 57 -79 75 degrees QTcB Int : 448 ms Normal sinus rhythm with sinus arrhythmia RSR' or QR pattern in V1 suggests right ventricular conduction delay Left anterior fascicular block Minimal voltage criteria for LVH, may be normal variant Abnormal ECG When compared with ECG of 19-Oct-2024 05:23, Premature ventricular complexes are no longer Present T wave inversion less evident in Anterolateral leads Confirmed by Julio César Perez ([id number]) on 12/15/2024 2:09:18 PM Referred By: Confirmed By: Julio César Perez
[2024-12-15] MEDS ORDERED: HYDROmorphone PCA 30 MG/30 ML IV PRN (15:11)
[2024-12-15] MEDS ORDERED: NALOXONE HCL 0.4 MG/1 ML VIAL/CARP IV PRN (15:11)
--- NOTE | 2024-12-15 15:27 | History & Physical Report ---
Date of Service December 15, 2024 Assessment & Plan (1) Severe sepsis: (2) Cellulitis of right foot: (3) Ischemic necrosis of toe: (4) Comfort measures only status: (5) Uncontrolled pain: (6) Hyperkalemia: (7) Acute kidney injury: (8) Type [address] elevation: Plan In summary this is an 79-year-old female who presented to the [facility] for evaluation of what was found to be ischemic right 1st and 2nd toe with an associated cellulitis; they remain comfort measures only #Uncontrolled pain secondary to acute atheroembolic ischemic injury to the right 1st and 2nd toe The patient's evaluation at bedside is most consistent with atheroembolic injury causing significant discomfort along with discomfort from there persistent cellulitis; given the patient's comfort measures only status, we will pursue management with [facility] as further detailed below with assistance from case management to determine if the patient may be discharged to [facility] Start hydromorphone gtt. Case management consulted #Severe sepsis secondary to cellulitis of the right foot with an associated atheroembolic ischemic necrosis of the right 1st and 2nd toe Resulting in decompensation involving acute kidney injury, severe hyperkalemia, type II myocardial infarction without ST elevation among other complications; after further discussion by the patient's emergency department provider with the patient and their family at bedside, they chose to remain comfort measures only, as the patient is unlikely to have significant recovery that would result in sustained quality of life equal to what they had prior to their presentation History of Present Illness Chief Complaint: Progressive weakness, hospice Primary Care Provider: Prasad Estevez DO Ms. Islas is an 79-year-old female whose active medical conditions include end-stage heart failure established on hospice who presents to the [facility] on 12/15 due to progressive weakness, diminished responsiveness, and concern from hospice nurses that they have an untreated lower extremity infection. Initial evaluation by the patient's emergency department provider was concerning for sepsis secondary to a right 1st and 2nd toe cellulitis however, after further discussion with family, the patient is going to remain comfort measures only and not pursue additional treatment for this condition. Unfortunately, the patient's already established hospice provider does not provide 24-hour care, therefore they are unable to return home for continued management of her conditions. The patient endorses discomfort of the lower extremity, specifically the right greater than left, associated with her area of what appears to be necrotic tissue involving the 1st and 2nd toe. Other than this discomfort they have no other specific complaints or concerns at this time. Allergies Allergy/AdvReac Type Severity Reaction Status Date / Time morphine Allergy Intermediate ITCHING Verified 12/15/24 15:08 PER PT'S SON Home Medications Medication Instructions Recorded Confirmed Type clindamycin HCl 300 mg capsule 300 mg PO TID 12/15/24 12/15/24 History oxycodone 10 mg tablet,crush 10 mg PO BID 12/15/24 12/15/24 History resistant,extended release 12 hr (OxyContin) trazodone 50 mg tablet 50 mg PO HS PRN Insomnia 12/15/24 12/15/24 History Past Med/Surg History Problem List (Updated 12/15/24 @ 15:24 by Jluis Wilson DO) Type [address] elevation Acute kidney injury Hyperkalemia Uncontrolled pain Ischemic necrosis of toe Cellulitis of right foot Severe sepsis Comfort measures only status Counseling regarding goals of care SOB (shortness of breath) on exertion Pneumothorax (Acute) Hypoxia (Acute) Syncope (Acute) Pressure ulcer, buttock Pressure ulcer of right ankle Acute respiratory failure Encounter for hospice care discussion Patient cannot afford medications Does not have health insurance Hypokalemia 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 Acute respiratory failure with hypoxia CHF (congestive heart failure) (Acute) Medical History (Updated 12/15/24 @ 15:24 by Jluis Wilson DO) Stroke Social History (Updated 10/17/24 @ 13:07 by Yajaira Huang) Smoking Status: Unknown if ever smoked Tobacco Type: Cigarettes Age Started Using Tobacco: 15; Age Quit Using Tobacco: 15; packs per day: 0.01; Hx Alcohol Use: Yes Alcohol type: beer Hx Substance Use: No Preferred Language: Algerian Communication Ability: Effective Director Of Digital Platforms Required: No Beliefs That Will Affect Care: None Current Living Situation: Alone Current Living Situation Comment: home alone; son lives next door Feels Safe at Home: Yes Dental Care, Regularly: No Physical Activity Frequency: Does not Exercise Seatbelt Use: always Sunscreen Use: No Assistive Devices: Walker Review of Systems Review of Systems: Review of cardiovascular, pulmonary, gastrointestinal, genitourinary, integumentary systems was unremarkable except for noted pain as described above Physical Exam Physical Exam: General: Elderly female in no acute distress Vital Signs: Persistently hypotensive HEENT: Tacky mucous membranes Pulmonary: Symmetric chest wall excursion without restriction Cardiovascular: Regular rate and rhythm with 2+ radial pulse and posterior tibial pulse Skin: The right 1st and 2nd toe are frankly necrotic, cool to touch, with tenderness along the proximal portion of the phalanx involving the entirety of the right foot; this area is edematous, warm to touch, with erythematous change Results & Data Results & Data Vital Signs (Past 12 Hours) Vital Signs Temp Pulse Pulse Resp BP BP Pulse Ox 12/15/24 14:30 80 16 143/71 H 93 12/15/24 14:15 86 22 114/60 96 12/15/24 14:00 96 H 13 108/59 L 94 12/15/24 13:45 94 H 16 107/60 93 12/15/24 13:45 107/60 12/15/24 13:30 79 20 106/58 L 93 12/15/24 13:15 81 15 110/55 L 91 12/15/24 13:09 36.3 C L 12/15/24 13:01 76 17 91 12/15/24 13:00 77 18 99/37 L 90 12/15/24 13:00 76 17 99/37 L 91 12/15/24 12:54 74 12/15/24 12:41 77 20 91/56 L 92 O2 Del Method 12/15/24 14:30 12/15/24 14:15 12/15/24 14:00 12/15/24 13:45 12/15/24 13:45 12/15/24 13:30 12/15/24 13:15 12/15/24 13:09 12/15/24 13:01 Room Air 12/15/24 13:00 12/15/24 13:00 Room Air 12/15/24 12:54 12/15/24 12:41 Room Air Code Status & VTE Plan VTE Prophylaxis Plan VTE Prophylaxis will be ordered: No Reason for no VTE drug order: Drug declined by patient PG Care Time/CCT Total # of Minutes Spent Total Time Spent with Patient: Total time spent is greater than 50% in coordination of care (as documented) at patient's floor/unit and/or counseling patient: Coding Level of Care Code 08060 INT INP/OBS CARE 3/75MIN Diagnoses Severe sepsis A41.9; R65.20 Cellulitis of right foot L03.115 Ischemic necrosis of toe I96 Comfort measures only status Z51.5 Uncontrolled pain R52 Hyperkalemia E87.5 Acute kidney injury N17.9 Type [address] elevation I21.A1
[2024-12-15 16:55] VITALS: BP 120/75; PULSE 88; RESP 15; O2SAT 95
[2024-12-15] MEDS ORDERED: ONDANSETRON INJ 2 MG/ML 2 ML VIAL IV PRN (17:22)
[2024-12-15] MEDS ORDERED: GLYCOPYRROLATE 0.2 MG/ML VIAL IV PRN (17:22)
[2024-12-15] MEDS ORDERED: ATROPINE SULFATE 1% OP SOLN 5 ML BTL SL PRN (17:22)
[2024-12-15] MEDS ORDERED: MoRPHine SULFATE 10 MG/0.5 ML UDP PO PRN (17:51)
[2024-12-15] MEDS: SODIUM CHLORIDE 0.9% 1,000 ML IV SCH (18:00)
[2024-12-15] MEDS: HYDROmorphone Bolus from PCA IV STA (18:00)
[2024-12-15] MEDS: HYDROmorphone INJ 0.5 MG/0.5 ML SYR IV PRN (18:43)
--- NOTE | 2024-12-16 10:59 | Hospitalist Progress Note ---
Date of Service December 16, 2024 Assessment & Plan (1) Comfort measures only status: (2) Uncontrolled pain: (3) Severe sepsis: (4) Cellulitis of right foot: (5) Ischemic necrosis of toe: (6) Hyperkalemia: (7) Acute kidney injury: (8) Type [address] elevation: Plan In summary this is an 79-year-old female who presented to the [facility] for evaluation of what was found to be ischemic right 1st and 2nd toe with an associated cellulitis; they remain comfort measures only #Uncontrolled pain secondary to acute atheroembolic ischemic injury to the right 1st and 2nd toe At initial presentation, evaluation at bedside was most consistent with atheroembolic injury causing significant discomfort along with discomfort from persistent cellulitis; her symptoms are now controlled with as needed IV narcotic medications, as the family requested to not use a SERVER ENGINEER Continue current regimen Case management consulted for GIP evaluation #Severe sepsis secondary to cellulitis of the right foot with an associated atheroembolic ischemic necrosis of the right 1st and 2nd toe Resulting in decompensation involving acute kidney injury, severe hyperkalemia, type II myocardial infarction without ST elevation among other complications; after further discussion by the patient's emergency department provider with the patient and their family at bedside, they chose to remain comfort measures only, as the patient is unlikely to have significant recovery that would result in sustained quality of life equal to what they had prior to their presentation Admission and Anticipated Discharge Date Admission Date: December 16, 2024 Subjective Ms. Islas is an 79-year-old female whose active medical conditions include end-stage heart failure established on hospice who presents to the [facility] on 12/15 due to progressive weakness, diminished responsiveness, and concern from hospice nurses that they have an untreated lower extremity infection. Initial evaluation by the patient's emergency department provider was concerning for sepsis secondary to a right 1st and 2nd toe cellulitis however, after further discussion with family, the patient is going to remain comfort measures only and not pursue additional treatment for this condition. Unfortunately, the patient's already established hospice provider does not provide 24-hour care, therefore they are unable to return home for continued management of her conditions. No acute overnight events; symptoms are currently controlled with regimen Review of Systems Review of Systems: Review of cardiovascular, pulmonary, gastrointestinal, genitourinary, integumentary systems was unremarkable except for noted pain as described above Physical Exam Physical Exam: General: Elderly female in no acute distress HEENT: Moist mucous membranes Pulmonary: Symmetric chest wall excursion without restriction Cardiovascular: Regular rate and rhythm with 2+ radial pulse Skin: findings from previous day remain PG Care Time/CCT Total # of Minutes Spent Total Time Spent with Patient: Total time spent is greater than 50% in coordination of care (as documented) at patient's floor/unit and/or counseling patient: Coding Level of Care Code 36284 SUB INP/OBS CARE 2/35MIN Diagnoses Comfort measures only status Z51.5 Uncontrolled pain R52 Severe sepsis A41.9; R65.20 Cellulitis of right foot L03.115 Ischemic necrosis of toe I96 Hyperkalemia E87.5 Acute kidney injury N17.9 Type [address] elevation I21.A1
[2024-12-16] MEDS: LORazepam Inj 0.5 MG in SYRINGE 0.25 ML IV PRN (12:39)
--- NOTE | 2024-12-17 07:23 | Hospitalist Progress Note ---
Date of Service December 17, 2024 Assessment & Plan (1) Comfort measures only status: (2) Uncontrolled pain: (3) Severe sepsis: (4) Cellulitis of right foot: (5) Ischemic necrosis of toe: (6) Hyperkalemia: (7) Acute kidney injury: (8) Type [address] elevation: Plan In summary this is an 79-year-old female who presented to the [facility] for evaluation of what was found to be ischemic right 1st and 2nd toe with an associated cellulitis; they remain comfort measures only #Uncontrolled pain secondary to acute atheroembolic ischemic injury to the right 1st and 2nd toe At initial presentation, evaluation at bedside was most consistent with atheroembolic injury causing significant discomfort along with discomfort from persistent cellulitis; her symptoms are now controlled with as needed IV narcotic medications, as the family requested to not use a TEACHER CCLC Continue current regimen Case management consulted for GIP evaluation #Severe sepsis secondary to cellulitis of the right foot with an associated atheroembolic ischemic necrosis of the right 1st and 2nd toe Resulting in decompensation involving acute kidney injury, severe hyperkalemia, type II myocardial infarction without ST elevation among other complications; after further discussion by the patient's emergency department provider with the patient and their family at bedside, they chose to remain comfort measures only, as the patient is unlikely to have significant recovery that would result in sustained quality of life equal to what they had prior to their presentation Admission and Anticipated Discharge Date Admission Date: December 16, 2024 Subjective Ms. Islas is an 79-year-old female whose active medical conditions include end-stage heart failure established on hospice who presents to the [facility] on 12/15 due to progressive weakness, diminished responsiveness, and concern from hospice nurses that they have an untreated lower extremity infection. Initial evaluation by the patient's emergency department provider was concerning for sepsis secondary to a right 1st and 2nd toe cellulitis however, after further discussion with family, the patient is going to remain comfort measures only and not pursue additional treatment for this condition. Unfortunately, the patient's already established hospice provider does not provide 24-hour care, therefore they are unable to return home for continued management of her conditions. No acute overnight events; symptoms are currently controlled with regimen Results & Data Results & Data Vital Signs (Past 12 Hours) Vital Signs O2 Del Method 12/16/24 20:00 Room Air PG Care Time/CCT Total # of Minutes Spent Total Time Spent with Patient: Total time spent is greater than 50% in coordination of care (as documented) at patient's floor/unit and/or counseling patient: Coding Diagnoses Comfort measures only status Z51.5 Uncontrolled pain R52 Severe sepsis A41.9; R65.20 Cellulitis of right foot L03.115 Ischemic necrosis of toe I96 Hyperkalemia E87.5 Acute kidney injury N17.9 Type [address] elevation I21.A1
--- NOTE | 2024-12-17 10:55 | Discharge Summary ---
Discharge Summary Date of Service December 17, 2024 Principal Dx & Hospital Course #1 = Principal Diagnosis (1) Comfort measures only status: (2) Uncontrolled pain: (3) Severe sepsis: (4) Cellulitis of right foot: (5) Ischemic necrosis of toe: (6) Hyperkalemia: (7) Acute kidney injury: (8) Type [address] elevation: Plan In summary this is an 79-year-old female who presented to the [facility] for evaluation of what was found to be ischemic right 1st and 2nd toe with an associated cellulitis; they remain comfort measures only #Uncontrolled pain secondary to acute atheroembolic ischemic injury to the right 1st and 2nd toe At initial presentation, evaluation at bedside was most consistent with atheroembolic injury causing significant discomfort along with discomfort from persistent cellulitis; her symptoms are now controlled with as needed IV narcotic medications, as the family requested to not use a LEGAL FILE CLERK Transition to oral hydromorphone at discharge with as needed benadryl to assist with drug associated pruritis Discharged with [facility] services #Severe sepsis secondary to cellulitis of the right foot with an associated atheroembolic ischemic necrosis of the right 1st and 2nd toe Resulting in decompensation involving acute kidney injury, severe hyperkalemia, type II myocardial infarction without ST elevation among other complications; after further discussion by the patient's emergency department provider with the patient and their family at bedside, they chose to remain comfort measures only, as the patient is unlikely to have significant recovery that would result in sustained quality of life equal to what they had prior to their presentation Admission HPI Per Admitting Provider Ms. Islas is an 79-year-old female whose active medical conditions include end-stage heart failure established on hospice who presents to the [facility] on 12/15 due to progressive weakness, diminished responsiveness, and concern from hospice nurses that they have an untreated lower extremity infection. Initial evaluation by the patient's emergency department provider was concerning for sepsis secondary to a right 1st and 2nd toe cellulitis however, after further discussion with family, the patient is going to remain comfort measures only and not pursue additional treatment for this condition. Unfortunately, the patient's already established hospice provider does not provide 24-hour care, therefore they are unable to return home for continued management of her conditions. The patient endorses discomfort of the lower extremity, specifically the right greater than left, associated with her area of what appears to be necrotic tissue involving the 1st and 2nd toe. Other than this discomfort they have no other specific complaints or concerns at this time. Discharge Exam General: Elderly female in no acute distress HEENT: Moist mucous membranes Pulmonary: Symmetric chest wall excursion without restriction Cardiovascular: Regular rate and rhythm with 2+ radial pulse Genitourinary: Caro catheter in place with 75 mL of pale yellow urine Skin: findings from previous day remain Discharge Plan Discharge Items Patient Disposition: Hospice - Home Reason For Visit: SEPSIS FROM CELLULITIS; COIL FORMER Discharge Diagnosis: Severe sepsis from right lower extremity cellulitis // Atheroemoblic emboli involving the right lower extremity // Urinary retention // Comfort measures Condition on Discharge: Fair Activity: Per Instructions section Non-emergency contact: Primary Care Provider and Specialist Call non-emergency contact if: you have any medication questions, your symptoms worsen and your pain is not controlled Follow-up/Referrals: Prasad Estevez, [Primary Care Provider] - Diet: Regular Addtl Attending Provider Instructions: You were admitted to [facility] for pain management in the setting of comfort measures only, in the setting of severe sepsis secondary to right lower extremity cellulitis complicated by atheroembolic injuries involving the right 1st and 2nd toes. During her hospitalization as needed intravenous hydromorphone was used for pain management. You did have some pruritus as an adverse effect, which is common with narcotic medications; we will adjust regimen upon discharge with oral medications to hopefully reduce the frequency of these adverse effects. During your hospitalization a Caro catheter was placed due to persistent urinary retention and associated discomfort; this will be maintained at the time of discharge and likely carried forward pending recommendations by your hospice care providers. Thank you for choosing [facility] as your healthcare provider. Pending Studies at Discharge: No Stand-Alone Forms: My [facility] Medications and DC Order Prescriptions: New naloxone 0.4 mg/mL Solution 0.1 mg intranasal Q5M PRN (Reason: opioid reversal) 14 Days Qty: 1 0RF hydromorphone 2 mg tablet 2 mg PO Q3H PRN (Reason: breakthrough pain) 3 Days Qty: 10 0RF diphenhydramine HCl [Benadryl] 25 mg capsule 25 mg PO Q6H PRN (Reason: itchiness) Qty: 10 0RF Discontinued clindamycin HCl 300 mg capsule 300 mg PO TID Rx Instructions: STARTED 12/11/24 FOR 10 DAYS trazodone 50 mg tablet 50 mg PO HS PRN (Reason: Insomnia) oxycodone [OxyContin] 10 mg Tablet,Oral Only,Ext.Rel.12 Hr 10 mg PO BID Discharge Orders: Discharge Order (Routine); Ordered 12/17/24 Ordered By: Jluis Noonan/Other Patient Handouts: Urinary Catheter Bag Empty Clean, Indwelling Urinary Catheter Dc, Leg Bag Care Dc Admission Data Admit Date/Time: 12/16/24 08:00 Attending Provider: Jluis Wilsno Admit Provider: Jluis Wilson Primary Care Provider: Prasad Estevez Other Providers: Roc[facility]; [facility] Other Interventions: Discharge Summary Assessment (RN) Last Done: 12/17/24 09:45 Hospital Stay Data Pending Results Patient Have Any Pending Studies at Discharge: No Discharge Instructions Given to Patient (Per Discharging Provider) You were admitted to [facility] for pain management in the setting of comfort measures only, in the setting of severe sepsis secondary to right lower extremity cellulitis complicated by atheroembolic injuries involving the right 1st and 2nd toes. During her hospitalization as needed intravenous hydromorphone was used for pain management. You did have some pruritus as an adverse effect, which is common with narcotic medications; we will adjust regimen upon discharge with oral medications to hopefully reduce the frequency of these adverse effects. During your hospitalization a Caro catheter was placed due to persistent urinary retention and associated discomfort; this will be maintained at the time of discharge and likely carried forward pending recommendations by your hospice care providers. Thank you for choosing [facility] as your healthcare provider. Total Time Total Time Spent Total Time Spent (In Minutes): I personally spent 40 minutes in the coordination of today's discharge including bedside counselling, physical exam, medication reconciliation, and coordination of hopsice care with the assistance of case management Coding Level of Care Code 39498 INP/OBS DISCH >30 MIN Diagnoses Comfort measures only status Z51.5 Uncontrolled pain R52 Severe sepsis A41.9; R65.20 Cellulitis of right foot L03.115 Ischemic necrosis of toe I96 Hyperkalemia E87.5 Acute kidney injury N17.9 Type [address] elevation I21.A1
== END 2024-12-17 10:41 | disposition hospice, home (50) | DRG 951 ==
LOC: ED 12:29 → 3E 12:29